=== PATIENT | female | born 1970 | race African-American/Black ===

== ENCOUNTER 2016-11-14 16:35 | Emergency (ER) | payer MEDICAID ==
[~2016-11-14 16:35] MED LIST: PALI9TAB PO; PANT40TA5 PO; [UNRECOGNIZED DRUG - OTHER] PO
[2016-11-14] MEDS ORDERED: TRAM-29 PO (17:42)
[2016-11-14] MEDS ORDERED: METH4TAB2 PO (17:42)
[2016-11-14] MEDS ORDERED: METH-37 PO (17:42)
--- NOTE | 2016-11-14 17:42 | PHYS DOC ---
Past Medical History Past Medical History: Anxiety, Depression, Schizophrenia Past Surgical History: Tubal ligation Alcohol Use: None Drug Use: None Adult General Chief Complaint Chief Complaint: Neck Pain HPI HPI Patient is a 46 year old female with a history of anxiety schizophrenia who presents today complaining of moderate neck pain due to chronic cervical stenosis. Patient denies any known injury. Denies any pain radiating to bilateral upper extremities. Denies any numbness or tingling to bilateral upper extremities. Review of Systems Review of Systems Constitutional: Denies fever or chills [] Eyes: Denies change in visual acuity, redness, or eye pain [] Musculoskeletal: Neck pain Integument: Denies rash or skin lesions [] Neurologic: Denies headache, focal weakness or sensory changes [] Endocrine: Denies polyuria or polydipsia [] Allergies Allergies Allergies Uncoded Allergies Type Severity Reaction Last Updated Verified itching pill Adverse Reaction Unknown 07/21/15 Physical Exam Physical Exam Constitutional: Well developed, well nourished, no acute distress, non-toxic appearance. [] HENT: Normocephalic, atraumatic, bilateral external ears normal, oropharynx moist, no oral exudates, nose normal. [] Eyes: PERRLA, EOMI, conjunctiva normal, no discharge. [] Neck: Normal range of motion, diffuse paraspinal muscle tenderness to posterior cervical spine, no midline cervical spine tenderness, supple, no stridor. [] Skin: Warm, dry, no erythema, no rash. [] Back: No tenderness, no CVA tenderness. [] Extremities: No tenderness, no cyanosis, no clubbing, ROM intact, no edema. [] Neurologic: Alert and oriented X 3, normal motor function, normal sensory function, no focal deficits noted. [] Psychologic: Affect normal, judgement normal, mood normal. [] EKG EKG [] Radiology/Procedures Radiology/Procedures [] Course & Med Decision Making Course & Med Decision Making Pertinent Labs and Imaging studies reviewed. (See chart for details) Patient is in the ED with chronic neck pain due to cervical stenosis. Discharged with Medrol dose pack, Robaxin and Ultram and instructed to continue following up with her primary care doctor or the provided her pain clinic for follow-up. Dragon Disclaimer Dragon Disclaimer This electronic medical record was generated, in whole or in part, using a voice recognition dictation system. Departure Departure Impression: Primary Impression: Chronic neck pain Disposition: 01 HOME, SELF-CARE Condition: STABLE Referrals: UNKNOWN PCP NAME (PCP) GISELLE ALATORRE MD Follow-up in one to 7 days for chronic neck pain Patient Instructions: Cervical Sprain Additional Instructions: You were seen for chronic neck pain due to cervical stenosis. Follow-up with the provided pain clinic. If you want a new Primary care doctor you can select one from the list provided. Scripts Methylprednisolone (MEDROL) 4 Mg Tab.ds.pk 1 PKG PO UD, #1 PKG Prov: REBECCA ALBRIGHT APRN 11/14/16 Methocarbamol (ROBAXIN) 500 Mg Tablet 1 TAB PO TID, #30 TAB Prov: REBECCA ALBRIGHT APRN 11/14/16 Tramadol Hcl (ULTRAM) 50 Mg Tablet 1 TAB PO Q6HRS, #30 TAB Prov: REBECCA ALBRIGHT APRN 11/14/16 REBECCA ALBRIGHT APRN Nov 14, 2016 17:42
[2016-11-14] MEDS ORDERED: HYDROcodone/APAP 5/325MG 1 TAB TABLET PO ONE (17:45)
[2016-11-14] MEDS ORDERED: CYCLOBENZAPRINE 10 MG TABLET. PO ONE (17:45)
[2016-11-14 17:46] VITALS: BP 117/77
== END 2016-11-14 17:50 | disposition home or self-care (01) ==
LOC: ER 16:35
DX: G89.29 Other chronic pain (principal); M54.2 Cervicalgia; F20.9 Schizophrenia, unspecified; F32.9 Major depressive disorder, single episode, unspecified; F41.9 Anxiety disorder, unspecified; M48.02 Spinal stenosis, cervical region; Z98.51 Tubal ligation status
CPT/HCPCS: 99283

== ENCOUNTER 2019-01-31 09:36 | Emergency (ER) | payer SELFPAY ==
[~2019-01-31] VITALS: Ht 160 cm; Wt 89.8 kg
[~2019-01-31 09:36] MED LIST changes: +METH-37 PO; +METH4TAB2 PO; -PANT40TA5 PO; +PANT40TA77 PO; +TRAM-48 PO
[2019-01-31] MEDS ORDERED: IV NORMAL SALINE 1000ML BAG 1,000 ML IV SCH (10:02)
[2019-01-31] MEDS ORDERED: PROCHLORPERAZINE 10 MG/2 ML VIAL. IV ONE (10:15)
[2019-01-31] MEDS ORDERED: FAMOTIDINE 20 MG/2 ML VIAL IVP ONE (10:15)
[2019-01-31] MEDS ORDERED: diphenhydrAMINE 50 MG/ML VIAL IVP ONE (10:15)
--- NOTE | 2019-01-31 10:15 | PHYS DOC ---
Past Medical History Past Medical History: Anxiety, Depression, Schizophrenia Additional Past Medical Histor: ulcers, fibroids Past Surgical History: Tubal ligation Smoking: Cigarettes Alcohol Use: None Drug Use: None Adult General Chief Complaint Chief Complaint: ABDOMINAL PAIN HPI HPI Patient is a 48-year-old female who presents to the emergency department for evaluation. She states that this morning, she began experiencing epigastric pain, and recurrent episodes of vomiting. She has not had any bloody emesis, does report some diarrhea, but her stool has been nonbloody. She has not had any chest pain shortness of breath. She is very anxious at this time. She states she has had similar episodes in the past numerous times, and states that "my ulcers are acting up", although she does not recall any particular diagnosis being given to her as a cause for her symptoms in the past. She flatly denies any substance abuse or marijuana use. She does not take alcohol. She has not had any fevers or chills, dizziness or lightheadedness. There are no alleviating or exacerbating factors to her symptoms. Review of her records reveal that she was hospitalized here in 2016 with a similar presentation. Review of Systems Review of Systems Constitutional: Denies fever or chills [] Eyes: Denies change in visual acuity, redness, or eye pain [] HENT: Denies nasal congestion or sore throat [] Respiratory: Denies cough or shortness of breath [] Cardiovascular: The patient denies any shortness of breath, chest pain, palpitations, or orthopnea [] GI:No additional information not addressed in HPI [] : Denies dysuria or hematuria [] Musculoskeletal: Denies back pain or joint pain [] Integument: Denies rash or skin lesions [] Neurologic: Denies headache, focal weakness or sensory changes [] Endocrine: Denies polyuria or polydipsia [] All other systems were reviewed and found to be within normal limits, except as documented in this note. Current Medications Current Medications Current Medications Medications (Trade) Dose Ordered Sig/Maribell Start Time Stop Time Status Last Admin Dose Admin Diphenhydramine HCl (Benadryl) 12.5 mg 1X ONCE 01/31/19 10:15 01/31/19 10:26 DC 01/31/19 10:25 12.5 MG Famotidine (Pepcid Vial) 20 mg 1X ONCE 01/31/19 10:15 01/31/19 10:26 DC 01/31/19 10:25 20 MG Info (CONTRAST GIVEN -- Rx MONITORING) 1 each PRN DAILY PRN 01/31/19 10:45 02/02/19 10:44 Iohexol (Omnipaque 300 Mg/ml) 75 ml 1X ONCE 01/31/19 10:45 01/31/19 10:46 DC 01/31/19 11:28 75 ML Lorazepam (Ativan Inj) 1 mg 1X ONCE 01/31/19 10:15 01/31/19 10:26 DC 01/31/19 10:25 1 MG Morphine Sulfate (Morphine Sulfate) 4 mg 1X ONCE 01/31/19 12:30 01/31/19 12:33 DC 01/31/19 12:38 4 MG Multi-Ingredient Mouthwash/Gargle (Gi Cocktail) 20 ml 1X ONCE 01/31/19 12:30 01/31/19 12:33 DC 01/31/19 12:38 20 ML Ondansetron HCl (Zofran) 4 mg 1X ONCE 01/31/19 12:30 01/31/19 12:33 DC 01/31/19 12:38 4 MG Prochlorperazine Edisylate (Compazine) 10 mg 1X ONCE 01/31/19 10:15 01/31/19 10:26 DC 01/31/19 10:25 10 MG Sodium Chloride 1,000 ml @ 1,000 mls/hr Q1H 01/31/19 10:02 01/31/19 11:01 DC 01/31/19 10:25 1,000 MLS/HR Allergies Allergies Allergies Coded Allergies Type Severity Reaction Last Updated Verified levofloxacin Allergy Mild 01/31/19 Yes Physical Exam Physical Exam PHYSICAL EXAM: CONSTITUTIONAL: Well developed, well nourished HEAD: normocephalic, atraumatic EENT: PERRL, EOMI. Conjunctivae normal color, sclerae non-icteric; moist mucous membranes. NECK: Supple, non-tender; no meningismus. LUNGS: Lungs CTA, breathing even and unlabored. Normal air movement. HEART: Regular rate and rhythm, no murmur CHEST: No deformity; non-tender ABDOMEN: The abdomen is soft, there is epigastric and left upper quadrant tenderness to palpation, without rebound or guarding, the right upper quadrant is relatively nontender, the remainder the abdomen is soft and non-tender, no masses or bruits. Bowel sounds are present. EXTREM: Normal ROM; no deformity, no calf tenderness. Normal pulses palpable in all extremities. There is no pedal edema. SKIN: No rash; no diaphoresis NEURO: Alert; normal speech and cognition; CN's grossly intact; strength grossly intact without focal deficit. BACK: No CVA TTP. PSYCHIATRIC: The patient exhibits a severely anxious affect. Current Patient Data Vital Signs Vital Signs Date Time Temp Pulse Resp B/P (MAP) Pulse Ox O2 Delivery O2 Flow Rate FiO2 01/31/19 12:38 24 01/31/19 12:37 42 129/80 (96) 98 Room Air 01/31/19 09:45 97.8 97.8 Lab Values Laboratory Tests Test 01/31/19 10:55 01/31/19 11:05 01/31/19 11:10 White Blood Count 11.8 x10^3/uL (4.0-11.0) H Red Blood Count 4.39 x10^6/uL (3.50-5.40) Hemoglobin 13.6 g/dL (12.0-15.5) Hematocrit 40.7 % (36.0-47.0) Mean Corpuscular Volume 93 fL (79-100) Mean Corpuscular Hemoglobin 31 pg (25-35) Mean Corpuscular Hemoglobin Concent 34 g/dL (31-37) Red Cell Distribution Width 13.7 % (11.5-14.5) Platelet Count 227 x10^3/uL (140-400) Neutrophils (%) (Auto) 78 % (31-73) H Lymphocytes (%) (Auto) 16 % (24-48) L Monocytes (%) (Auto) 5 % (0-9) Eosinophils (%) (Auto) 1 % (0-3) Basophils (%) (Auto) 0 % (0-3) Neutrophils # (Auto) 9.2 x10^3/uL (1.8-7.7) H Lymphocytes # (Auto) 1.9 x10^3/uL (1.0-4.8) Monocytes # (Auto) 0.5 x10^3/uL (0.0-1.1) Eosinophils # (Auto) 0.2 x10^3/uL (0.0-0.7) Basophils # (Auto) 0.0 x10^3/uL (0.0-0.2) Sodium Level 146 mmol/L (136-145) H Potassium Level 4.2 mmol/L (3.5-5.1) Chloride Level 113 mmol/L (98-107) H Carbon Dioxide Level 23 mmol/L (21-32) Anion Gap 10 (6-14) Blood Urea Nitrogen 12 mg/dL (7-20) Creatinine 0.6 mg/dL (0.6-1.0) Estimated GFR (Cockcroft-Gault) 129.1 BUN/Creatinine Ratio 20 (6-20) Glucose Level 115 mg/dL (70-99) H Calcium Level 10.5 mg/dL (8.5-10.1) H Total Bilirubin 0.4 mg/dL (0.2-1.0) Aspartate Amino Transferase (AST) 14 U/L (15-37) L Alanine Aminotransferase (ALT) 32 U/L (14-59) Alkaline Phosphatase 64 U/L (46-116) Troponin I Quantitative < 0.017 ng/mL (0.000-0.055) Total Protein 6.4 g/dL (6.4-8.2) Albumin 3.3 g/dL (3.4-5.0) L Albumin/Globulin Ratio 1.1 (1.0-1.7) Lipase 82 U/L (73-393) Thyroid Stimulating Hormone (TSH) 1.891 uIU/mL (0.358-3.74) Free Thyroxine 0.95 ng/dL (0.76-1.46) POC Urine HCG, Qualitative Hcg negative (Negative) Urine Collection Type Unknown Urine Color Yellow Urine Clarity Clear Urine pH 5.5 Urine Specific [place] 1.020 Urine Protein Negative mg/dL (NEG-TRACE) Urine Glucose (UA) Negative mg/dL (NEG) Urine Ketones (Stick) Negative mg/dL (NEG) Urine Blood Large (NEG) Urine Nitrite Negative (NEG) Urine Bilirubin Negative (NEG) Urine Urobilinogen Dipstick 0.2 mg/dL (0.2 mg/dL) Urine Leukocyte Esterase Negative (NEG) Urine RBC Rare /HPF (0-2) Urine WBC Occ /HPF (0-4) Urine Squamous Epithelial Cells Few /LPF Urine Bacteria Few /HPF (0-FEW) Urine Hyaline Casts Few /HPF Urine Mucus Mod /LPF Urine Opiates Screen Neg (NEG) Urine Methadone Screen Neg (NEG) Urine Barbiturates Neg (NEG) Urine Phencyclidine Screen Neg (NEG) Urine Amphetamine/Methamphetamine Neg (NEG) Urine Benzodiazepines Screen Neg (NEG) Urine Cocaine Screen Neg (NEG) Urine Cannabinoids Screen Neg (NEG) Urine Ethyl Alcohol Neg (NEG) Laboratory Tests 01/31/19 10:55 Laboratory Tests 01/31/19 10:55 EKG EKG []Sinus bradycardia at a rate of 46 beats for minute, normal axis, normal intervals, there are no acute ischemic ST/T changes. Radiology/Procedures Radiology/Procedures [PROCEDURE: CT ABD PELV W/ IV CONTRST ONLY PQRS Compliance statement: One or more of the following individualized dose reduction techniques were utilized for this examination: 1. Automated exposure control. 2. Adjustment of the mA and/or kV according to patient size. 3. Use of iterative reconstruction technique. Indication:Upper abdominal pain. Nausea and vomiting. TECHNIQUE: CT abdomen and pelvis with IV contrast with multiplanar reformats. COMPARISON: 07/21/2015. FINDINGS: Heart is normal in size. No pericardial or pleural effusion. 5 mm groundglass opacity in the left lung base. Liver, spleen, gallbladder, pancreas, adrenals and kidneys are within normal limits. No enlarged retroperitoneal or pelvic adenopathy. No free pelvic fluid or ascites. No bowel obstruction. Normal appendix. Mild circumferential wall thickening is seen of the ascending colon up to the level of mid transverse colon. No pericolonic inflammatory changes. Anteverted uterus. Urinary bladder demonstrates no radiopaque stone. No pneumoperitoneum. No suspicious bony lesion. IMPRESSION: 1. Solitary 5 mm small groundglass opacity in the left lung base, nonspecific and may be secondary to atelectasis. CT chest in 6 months recommended. 2. No nephrolithiasis or hydronephrosis. 3. Mild circumferential wall thickening of the proximal colon up to the level of transverse colon may be secondary to suboptimal distention or mild colitis.] Course & Med Decision Making Course & Med Decision Making Pertinent Labs and Imaging studies reviewed. (See chart for details) [] 2:00 PM: The patient's condition remained stable, she is feeling much better at this time, she has had no further vomiting, and appears to be resting comfortably. I discussed test results with the patient, the need for close PCP follow-up, and return precautions in detail. Dragon Disclaimer Dragon Disclaimer This electronic medical record was generated, in whole or in part, using a voice recognition dictation system. Departure Departure Impression: Primary Impression: Nausea & vomiting Additional Impression: Abdominal pain Disposition: HOME, SELF-CARE Condition: STABLE Referrals: NO PCP (PCP) Patient Instructions: Abdominal Pain, Gastritis, Adult, Nausea and Vomiting, Pulmonary Nodule Additional Instructions: There was a nodule that showed up on your left lung on the CAT scan, incidentally noted when a scan of her abdomen was obtained. It is recommended that you obtain a follow-up CT scan of your chest in 6 months, for further evaluation, and to exclude possibility of malignancy. Please contact your primary care provider to arrange further outpatient follow-up. He does not have a primary care provider, please use the provided resources, to help establish a primary care provider who can help arrange follow-up 40. Please call to schedule an appointment. Scripts Ondansetron Hcl (ZOFRAN) 4 Mg Tablet 1 TAB PO Q6HRS PRN for NAUSEA/VOMITING, #20 TAB Prov: ROSY GANT MD 01/31/19 Omeprazole (OMEPRAZOLE) 20 Mg Capsule.dr 20 MG PO DAILY for 30 Days, #30 CAP Prov: ROSY GANT MD 01/31/19 Problem Qualifiers ROSY GANT MD Jan 31, 2019 10:15
--- NOTE | 2019-01-31 10:32 | EKG ---
[facility] [address] [place] [address] Test Date: 2019-01-31 Test Time: 09:44:34 Pat Name: ROSE RODRIGUEZ Department: Room: Gender: F Information Systems Supervisor: : 1970 Requested By: ROSY GANT Order Number: [id number] Reading MD: Vignesh Soares MD Measurements Intervals [place] Rate: 46 P: 0 NC: 182 QRS: 31 QRSD: 82 T: 40 QT: 412 QTc: 365 Interpretive Statements SINUS BRADYCARDIA Electronically Signed On 02-01-2019 16:02:47 CDT by Vignesh Soares MD
[2019-01-31] MEDS ORDERED: IOHEXOL 300 MG/ML 100ML VIAL. IV ONE (10:45)
[2019-01-31] MEDS ORDERED: CONTRAST GIVEN. MC PRN (10:45)
[2019-01-31 11:03] LABS: BASO % 0 % (0-3); EOS # 0.2 x10^3/uL (0.0-0.7); EOS % 1 % (0-3); HEMATOCRIT 40.7 % (36.0-47.0); HEMOGLOBIN 13.6 g/dL (12.0-15.5); LYMPH # 1.9 x10^3/uL (1.0-4.8); LYMPH % 16 % (24-48); MEAN CORPUSCULAR HEMOGLOBIN 31 pg (25-35); MEAN CORPUSCULAR HGB CONC 34 g/dL (31-37); MEAN CORPUSCULAR VOLUME 93 fL (79-100); MONO # 0.5 x10^3/uL (0.0-1.1); MONO % 5 % (0-9); NEUT # 9.2 x10^3/uL (1.8-7.7); NEUT % 78 % (31-73); PLATELET COUNT 227 x10^3/uL (140-400); RED BLOOD COUNT 4.39 x10^6/uL (3.50-5.40); RED CELL DISTRIBUTION WIDTH 13.7 % (11.5-14.5); WHITE BLOOD COUNT 11.8 x10^3/uL (4.0-11.0)
[2019-01-31 11:15] LABS: CALCIUM 10.5 mg/dL (8.5-10.1); CREATININE 0.6 mg/dL (0.6-1.0); GFR 129.1; POTASSIUM 4.2 mmol/L (3.5-5.1)
[2019-01-31 11:21] LABS: ALBUMIN 3.3 g/dL (3.4-5.0); ALBUMIN/GLOBULIN RATIO 1.1 (1.0-1.7); TOTAL BILIRUBIN 0.4 mg/dL (0.2-1.0); TOTAL PROTEIN 6.4 g/dL (6.4-8.2)
[2019-01-31 11:27] LABS: BILIRUBIN,URINE NEGATIVE (NEG); CLARITY,URINE CLEAR; COLOR,URINE YELLOW; NITRITE,URINE NEGATIVE (NEG); PH,URINE 5.5; PROTEIN,URINE NEGATIVE (NEG-TRACE); UROBILINOGEN,URINE 0.2 mg/dL (0.2 mg/dL)
[2019-01-31 11:29] LABS: FREE T4 0.95 ng/dL (0.76-1.46); THYROID STIM HORMONE (TSH) 1.891 uIU/mL (0.358-3.74)
[2019-01-31 11:43] LABS: AMPHETAMINE/METHAMPHETAMINE NEG (NEG); BACTERIA,URINE FEW /HPF (0-FEW); BARBITURATES NEG (NEG); BENZODIAZEPINES NEG (NEG); CANNABINOIDS NEG (NEG); COCAINE NEG (NEG); METHADONE NEG (NEG); OPIATES NEG (NEG); PHENCYCLIDINE NEG (NEG); RBC,URINE RARE /HPF (0-2); SQUAMOUS EPITHELIAL CELL,UR FEW /LPF; WBC,URINE OCC /HPF (0-4)
[2019-01-31 11:44] LABS: HYALINE CASTS, URINE FEW /HPF
--- NOTE | 2019-01-31 11:51 | RAD ---
PQRS Compliance statement: One or more of the following individualized dose reduction techniques were utilized for this examination: 1. Automated exposure control. 2. Adjustment of the mA and/or kV according to patient size. 3. Use of iterative reconstruction technique. Indication:Upper abdominal pain. Nausea and vomiting. TECHNIQUE: CT abdomen and pelvis with IV contrast with multiplanar reformats. COMPARISON: 07/21/2015. FINDINGS: Heart is normal in size. No pericardial or pleural effusion. 5 mm groundglass opacity in the left lung base. Liver, spleen, gallbladder, pancreas, adrenals and kidneys are within normal limits. No enlarged retroperitoneal or pelvic adenopathy. No free pelvic fluid or ascites. No bowel obstruction. Normal appendix. Mild circumferential wall thickening is seen of the ascending colon up to the level of mid transverse colon. No pericolonic inflammatory changes. Anteverted uterus. Urinary bladder demonstrates no radiopaque stone. No pneumoperitoneum. No suspicious bony lesion. IMPRESSION: 1. Solitary 5 mm small groundglass opacity in the left lung base, nonspecific and may be secondary to atelectasis. CT chest in 6 months recommended. 2. No nephrolithiasis or hydronephrosis. 3. Mild circumferential wall thickening of the proximal colon up to the level of transverse colon may be secondary to suboptimal distention or mild colitis. Electronically signed by: Micah Paredes DO (01/31/2019 11:48 AM) [facility]
[2019-01-31] MEDS ORDERED: LIDO:MAALOX 1:1 20 ML SINGLE DOSE. SWSW ONE (12:30)
[2019-01-31] MEDS ORDERED: MORPHINE SULFATE 4 MG/ML VIAL. IV ONE (12:30)
[2019-01-31] MEDS ORDERED: ONDANSETRON PF 4 MG/2 ML VIAL. IV ONE (12:30)
[2019-01-31] MEDS ORDERED: OMEP20CA10 PO (14:04)
[2019-01-31] MEDS ORDERED: ONDA4TAB7 PO (14:04)
[2019-01-31 14:07] VITALS: BP 131/85
== END 2019-01-31 14:31 | disposition home or self-care (01) ==
LOC: ER 09:36
DX: R11.2 Nausea with vomiting, unspecified (principal); R19.7 Diarrhea, unspecified; R10.13 Epigastric pain; F41.9 Anxiety disorder, unspecified; R10.12 Left upper quadrant pain; F32.9 Major depressive disorder, single episode, unspecified; F17.210 Nicotine dependence, cigarettes, uncomplicated; Z98.51 Tubal ligation status; Z88.1 Allergy status to other antibiotic agents
CPT/HCPCS: 36415; 74177; 80053; 80307; 81001; 81025; 83690; 84439; 84443; 84484; 85025; 93005; 96361; 96374; 96375; 99285; J0780; J1200; J2060; J2270; J2405; J3490; J7030; Q9967

== ENCOUNTER 2020-02-03 10:03 | Emergency (ER) | payer MEDICAID ==
[~2020-02-03] VITALS: Ht 162.6 cm; Wt 92.7 kg
[~2020-02-03 10:03] MED LIST changes: +OMEP20CA16 PO; +ONDA4TAB7 PO
[2020-02-03 10:17] VITALS: BP 132/76
--- NOTE | 2020-02-03 10:53 | RAD ---
EXAM: AP pelvis, AP and lateral views right hip DATE: 02/03/2020 12:00 AM INDICATION: Right hip pain, no injury COMPARISON: No Prior FINDINGS/ IMPRESSION: No acute fracture or dislocation. Hip joint spaces are preserved. Subtle calcification at the posterior aspect of the right greater tuberosity may represent changes of calcific tendinitis or calcific periarthritis. Electronically signed by: José Miguel Jung MD (02/03/2020 10:50 AM) [id number]
--- NOTE | 2020-02-03 11:18 | PHYS DOC ---
Past Medical History Past Medical History: Anxiety, Depression, Schizophrenia Additional Past Medical Histor: ulcers, fibroids Past Surgical History: Tubal ligation Additional Past Surgical Histo: hamstring surgery in 03/2019 Smoking Status: Current Every Day Smoker Alcohol Use: None Drug Use: None General Adult EDM: Chief Complaint: BACK PAIN - NO INJURY HPI: HPI: 49-year-old female past medical history of schizophrenia, spinal stenosis, hypothyroidism and gastric ulcers, presents to the ed with c/o " my back is all messed up, my sciatica is aggravated and is going down to my legs and feet on the left side." States she had a hamstring surgery (Dr. Montez Ruiz) in March 2019 that was completed by a staph infection-states she is had chronic pain ever since then. No relief with Tylenol, ibuprofen or Biofreeze. States the symptoms have been chronic and she was going to call orthopedic surgery Dr. Fisher today for "a second opinion." Denies any new trauma, takes no AC. ROS: Denies associated fever, chills, cough, sore throat, nausea, vomiting, diarrhea, flank pain, dysuria, hematuria, abdominal pain, saddle anesthesia, urinary or bowel retention or incontinence, leg swelling, hemoptysis or difficulties walking. Allergies: Allergies: Allergies Coded Allergies Type Severity Reaction Last Updated Verified levofloxacin Allergy Mild 01/31/19 Yes Physical Exam: PE: Constitutional: Well developed, well nourished, no acute distress, non-toxic appearance. [] HENT: Normocephalic, atraumatic, bilateral external ears normal, nose normal. [] Eyes: EOMI, conjunctiva normal, no discharge. [] Neck: Normal range of motion, no tenderness, supple, no stridor. [] Cardiovascular:Heart rate regular rhythm, no murmur [] Lungs & Thorax: Bilateral breath sounds clear to auscultation [] Abdomen: Bowel sounds normal, soft, no tenderness, no masses, no pulsatile masses. [] Skin: Warm, dry, no erythema, no rash. [] Back: No reproducible tenderness-pain is localized at left SI joint and buttock - normal skin exam, no CVA tenderness. [] straight leg negative Extremities: No tenderness, no cyanosis, no clubbing, ROM intact, no edema. [] steady gait Neurologic: Alert and oriented X 3, normal motor function, normal sensory f unction, no focal deficits noted. [] Psychologic: Affect normal, judgement normal, mood normal. [] Current Patient Data: Vital Signs: Vital Signs Date Time Temp Pulse Resp B/P (MAP) Pulse Ox O2 Delivery O2 Flow Rate FiO2 02/03/20 10:17 98.0 58 18 132/76 (94) 99 Room Air 98.0 EKG: EKG: [] Radiology/Procedures: Radiology/Procedures: [] IMAGING REPORT Signed PATIENT: ROSE RODRIGUEZ ACCOUNT: [id number] : 1970 LOCATION: ER AGE: 49 SEX: F EXAM STATUS: REG ER ORD. PHYSICIAN: JOLIE FRANCOIS DO REASON: Right hip pain, no injury PROCEDURE: HIP RIGHT 2V WITH PELVIS EXAM: AP pelvis, AP and lateral views right hip DATE: 02/03/2020 12:00 AM INDICATION: Right hip pain, no injury COMPARISON: No Prior FINDINGS/ IMPRESSION: No acute fracture or dislocation. Hip joint spaces are preserved. Subtle calcification at the posterior aspect of the right greater tuberosity may represent changes of calcific tendinitis or calcific periarthritis. Electronically signed by: José Miguel Meraz MD (02/03/2020 10:50 AM) [id number] DICTATED and SIGNED BY: JOSÉ MIGUEL MERAZ MD DATE: 02/03/20 1050 Course & Med Decision Making: Course & Med Decision Making Pertinent Labs and Imaging studies reviewed. (See chart for details) Concern for chronic, atraumatic, back pain in the setting of sciatica, no neurologic deficits. Will recommend muscle relaxers at this time and encouraged orthopedic surgery follow-up. ED return precautions were given for neurologic deficits. Encouraged urgent outpatient follow-up with PMD and Ortho. Life- threatening processes were considered but are low suspicion at this time, given history and physical exam. Pt was educated on all prescription medications and adverse effects. All patient's questions were answered and pt was stable at time of discharge. Differential includes aortic dissection, cauda equina syndrome, transverse myelitis, spinal cord compression, epidural abscess or hematoma, osteomyelitis, disc herniation, surgical abdomen, stable or unstable fracture, renal colic/ urosepsis, musculoskeletal injury, traumatic injury, intraabdominal or pelvic bleeding, I spoken with the patient and her caregivers. I explained the patient's condition, diagnoses and treatment plan based on the information available to me at this time. I have answered the patient and her caregiver's questions and addressed any concerns. The patient and her caregivers have a good understanding of patient's diagnosis, condition and treatment plan as can be expected at this point. Vital signs have been stable. Patient's condition is stable and appropriate for discharge from the emergency department. Patient will pursue further outpatient evaluation with primary care physician or other designated or consulting physician as outlined in the discharge in structions. The patient and/or caregivers are agreeable to this plan of care and follow-up instructions have been explained in detail. The patient and/or caregivers have received these instructions in written form and have expressed an understanding of the discharge instructions. The patient and/or caregivers are aware that any significant change of condition or worsening of symptoms should prompt immediate return to this or the closest emergency department or call to 911. Denise Disclaimer: Denise Disclaimer: This electronic medical record was generated, in whole or in part, using a voice recognition dictation system. Departure Departure Impression: Primary Impression: Sciatica Additional Impression: Calcific tendinitis Disposition: HOME, SELF-CARE Condition: STABLE Referrals: NO PCP (PCP) Patient Instructions: Sciatica Additional Instructions: Mayito Fisher MD Primary Specialties Orthopaedic Sports Medicine Orthopaedic Surgery Address: [address] [place] [address] Scripts Cyclobenzaprine Hcl (CYCLOBENZAPRINE HCL) 10 Mg Tablet 1 TAB PO TID, #21 TAB Prov: JOLIE FRANCOIS DO 02/03/20 Justicifation of Admission Dx: Justifications for Admission: Justification of Admission Dx: N/A JOLIE FRANCOIS DO Feb 03, 2020 11:18
[2020-02-03] MEDS ORDERED: CYCL10TA2 PO (11:33)
[2020-02-03] MEDS ORDERED: KETOROLAC 60 MG/2 ML VIAL. IM ONE (11:45)
== END 2020-02-03 11:50 | disposition home or self-care (01) ==
LOC: ER 10:03
DX: M54.42 Lumbago with sciatica, left side (principal); M65.28 Calcific tendinitis, other site; G89.28 Other chronic postprocedural pain; F20.9 Schizophrenia, unspecified; F17.200 Nicotine dependence, unspecified, uncomplicated; Z98.51 Tubal ligation status; Z88.1 Allergy status to other antibiotic agents
CPT/HCPCS: 73502; 96372; 99283; J1885

== ENCOUNTER 2020-03-15 18:21 | Emergency (ER) | payer MEDICAID ==
[~2020-03-15] VITALS: Ht 162.6 cm; Wt 84.0 kg
[~2020-03-15 18:21] MED LIST changes: +CYCL10TA2 PO
[2020-03-15 18:50] VITALS: BP 111/70
[2020-03-15] MEDS ORDERED: CEPH-264 PO (19:41)
--- NOTE | 2020-03-15 19:41 | PHYS DOC ---
Past Medical History Past Medical History: Anxiety, Depression, Schizophrenia Additional Past Medical Histor: ulcers, fibroids (LEONIDAS WATTS APRN) Past Surgical History: Tubal ligation Additional Past Surgical Histo: hamstring surgery in 03/2019 (LEONIDAS WATTS APRN) Smoking Status: Current Every Day Smoker Alcohol Use: None Drug Use: None (LEONIDAS WATTS APRN) General Adult EDM: Chief Complaint: VAGINAL PROBLEM HPI: HPI: Patient is a 49 year old AA female who presents the emergency department with complaints of a swollen, tender, area to her right labia with a pustule present for the last 3 days. She denies any irregular vaginal discharge, dysuria, or pelvic pain. The patient denies any bleeding or drainage from the affected area. She states that the area is very painful to touch. She currently rates her pain 8 out of 10 on the pain scale, the pain increases if pressure is applied. (LEONIDAS WATTS APRN) Review of Systems: Review of Systems: Constitutional: Denies fever or chills. [] GI: Denies abdominal pain : Denies dysuria, see HPI. [] Integument: See HPI Lymphatic: Denies swollen glands. [] Psychiatric: Denies depression or anxiety. [] (LEONIDAS WATTS APRN) Heart Score: Risk Factors: Risk Factors: DM, Current or recent (<one month) smoker, HTN, HLP, family history of CAD, obesity. Risk Scores: Score 0 - 3: 2.5% MACE over next 6 weeks - Discharge Home Score 4 - 6: 20.3% MACE over next 6 weeks - Admit for Clinical Observation Score 7 - 10: 72.7% MACE over next 6 weeks - Early Invasive Strategies (LEONIDAS WATTS APRN) Allergies: Allergies: Allergies Coded Allergies Type Severity Reaction Last Updated Verified levofloxacin Allergy Mild 01/31/19 Yes (LEONIDAS WATTS APRN) Physical Exam: PE: Constitutional: Well developed, well nourished, no acute distress, non-toxic appearance. [] HENT: Normocephalic, atraumatic, bilateral external ears normal, nose normal. [] Eyes: PERRLA, EOMI, conjunctiva normal, no discharge. [] Neck: Normal range of motion, no stridor. [] Cardiovascular:Heart rate regular rhythm Lungs & Thorax: Respirations even and unlabored, no retractions, no respiratory distress Abdomen: soft, no tenderness Skin: Warm, dry; 1 cm diameter erythemic, swollen area noted to right labia majora with centralized pustule that is not draining any blood or pus at this time. Dung RN was at bedside for x ray nurse fore evaluation. Extremities: No cyanosis, ROM intact, no edema. [] Neurologic: Alert and oriented X 3, no focal deficits noted. [] Psychologic: Affect normal, judgement normal, mood normal. [] (LEONIDAS WATTS APRN) Current Patient Data: Vital Signs: Vital Signs Date Time Temp Pulse Resp B/P (MAP) Pulse Ox O2 Delivery O2 Flow Rate FiO2 03/15/20 18:50 98.8 79 16 111/70 (84) 96 Room Air 98.8 (LEONIDAS WATTS APRN) EKG: EKG: [] (LEONIDAS WATTS APRN) Radiology/Procedures: Radiology/Procedures: Indication: abscess Procedure: The patient was positioned appropriately. The affected area of the right labia majora was cleansed with alcohol. An 18-gauge needle was inserted into the the apex of the lesion and moderate amount of pus and blood material was expressed. There was minimal blood loss, the patient tolerated the procedure well. Complications: none.[] (LEONIDAS WATTS APRN) Course & Med Decision Making: Course & Med Decision Making Pertinent Labs and Imaging studies reviewed. (See chart for details) [] (LEONIDAS WATTS APRN) Course & Med Decision Making I have reviewed the PA/MELANGEUR OPERATOR's note and Plan of Care. I was available for consultation as needed during the patient's visit in the emergency department. I agree with the clinical impression, plans and disposition. (CHRISTIANO MYERS MD) Denise Disclaimer: Denise Disclaimer: This electronic medical record was generated, in whole or in part, using a voice recognition dictation system. (LEONIDAS WATTS APRN) Departure Departure Impression: Primary Impression: Abscess of right genital labia Disposition: HOME, SELF-CARE Condition: STABLE Referrals: NO PCP (PCP) Patient Instructions: Vulvar Abscess, [id number] Additional Instructions: Fill the prescription and use it as directed. Recommend that you stops shaving this area as it contributes to the development of an abscess. Follow-up with y our [facility] this week, return to the ER if symptoms worsen or fever develops. Scripts Cephalexin (KEFLEX) 500 Mg Capsule 500 MG PO QID for 7 Days, #28 CAP 0 Refills Prov: LEONIDAS WATTS APRN 03/15/20 LEONIDAS WATTS APRN Mar 15, 2020 19:41 CHRISTIANO MYERS MD Mar 15, 2020 19:46
== END 2020-03-15 19:43 | disposition home or self-care (01) ==
LOC: ER 18:21
DX: N76.4 Abscess of vulva (principal); F20.9 Schizophrenia, unspecified; F17.200 Nicotine dependence, unspecified, uncomplicated; Z98.51 Tubal ligation status; Z88.1 Allergy status to other antibiotic agents
CPT/HCPCS: 56405; 99284

== ENCOUNTER 2020-04-19 08:39 | Emergency (ER) | payer MEDICAID ==
[~2020-04-19] VITALS: Ht 162.6 cm; Wt 84.0 kg
[~2020-04-19 08:39] MED LIST changes: +CEPH-264 PO
[2020-04-19] MEDS ORDERED: MORPHINE SULFATE 10 MG/ML VIAL. IV ONE ×2 (09:00→12:30)
[2020-04-19] MEDS ORDERED: LIDO:MAALOX 1:1 20 ML SINGLE DOSE. SWSW ONE (09:00)
[2020-04-19] MEDS ORDERED: diazePAM 5 MG TABLET PO ONE (09:00)
[2020-04-19 10:00] VITALS: BP 108/62
[2020-04-19] MEDS ORDERED: ONDANSETRON PF 4 MG/2 ML VIAL. IVP ONE (10:00)
[2020-04-19 10:13] LABS: CALCIUM 10.4 mg/dL (8.5-10.1); CREATININE 0.7 mg/dL (0.6-1.0); GFR 107.6; POTASSIUM 3.9 mmol/L (3.5-5.1)
[2020-04-19 10:18] LABS: ALBUMIN 3.7 g/dL (3.4-5.0); ALBUMIN/GLOBULIN RATIO 0.9 (1.0-1.7); TOTAL BILIRUBIN 0.6 mg/dL (0.2-1.0); TOTAL PROTEIN 7.7 g/dL (6.4-8.2)
[2020-04-19 10:34] LABS: BASO % 0 % (0-3); EOS # 0.1 x10^3/uL (0.0-0.7); EOS % 1 % (0-3); HEMATOCRIT 42.2 % (36.0-47.0); HEMOGLOBIN 14.2 g/dL (12.0-15.5); LYMPH # 1.8 x10^3/uL (1.0-4.8); LYMPH % 24 % (24-48); MEAN CORPUSCULAR HEMOGLOBIN 31 pg (25-35); MEAN CORPUSCULAR HGB CONC 34 g/dL (31-37); MEAN CORPUSCULAR VOLUME 93 fL (79-100); MONO # 0.4 x10^3/uL (0.0-1.1); MONO % 6 % (0-9); NEUT # 5.2 x10^3/uL (1.8-7.7); NEUT % 69 % (31-73); PLATELET COUNT 279 x10^3/uL (140-400); RED BLOOD COUNT 4.56 x10^6/uL (3.50-5.40); RED CELL DISTRIBUTION WIDTH 13.2 % (11.5-14.5); WHITE BLOOD COUNT 7.6 x10^3/uL (4.0-11.0)
[2020-04-19 11:27] LABS: BILIRUBIN,URINE SMALL (NEG); CLARITY,URINE CLEAR; COLOR,URINE AMBER; NITRITE,URINE NEGATIVE (NEG); PROTEIN,URINE >=300 mg/dL (NEG-TRACE); UROBILINOGEN,URINE 0.2 mg/dL (0.2 mg/dL)
[2020-04-19 12:01] LABS: BACTERIA,URINE FEW /HPF (0-FEW); WBC,URINE 0 /HPF (0-4)
[2020-04-19 12:02] LABS: HYALINE CASTS, URINE OCCASIONAL /HPF
--- NOTE | 2020-04-19 12:29 | ED.ADGEN ---
Past Medical History Past Medical History: Anxiety, Depression, Schizophrenia Additional Past Medical Histor: ulcers, fibroids Past Surgical History: Tubal ligation Additional Past Surgical Histo: hamstring surgery in 03/2019 Smoking Status: Current Every Day Smoker Alcohol Use: None Drug Use: None General Adult EDM: Chief Complaint: BACK PAIN OR INJURY HPI: HPI: Patient is a 49-year-old female who presents to the emergency room complaining of thoracic back pain and spasms. She states that she has been dealing with this pain for quite some time and then her back locked up on her today and she was not able to get up and move around so she called for an ambulance. She has had these episodes previously. She has not been able to follow-up with a primary care physician but has been in physical therapy. She takes muscle relaxants without any relief. She denies any fevers, chills, sweats, abdominal pain, numbness, weakness, urinary difficulty. Review of Systems: Review of Systems: Constitutional: Denies fever or chills. [] Eyes: Denies change in visual acuity. [] HENT: Denies nasal congestion or sore throat. [] Respiratory: Denies cough or shortness of breath. [] Cardiovascular: Denies chest pain or edema. [] GI: Denies abdominal pain, nausea, vomiting, bloody stools or diarrhea. [] : Denies dysuria. [] Musculoskeletal: Denies back pain or joint pain. [] Integument: Denies rash. [] Neurologic: Denies headache, focal weakness or sensory changes. [] Endocrine: Denies polyuria or polydipsia. [] Lymphatic: Denies swollen glands. [] Psychiatric: Denies depression or anxiety. [] Current Medications: Current Medications Medications (Trade) Dose Ordered Sig/Maribell Start Time Stop Time Status Last Admin Dose Admin Diazepam (Valium) 5 mg 1X ONCE 04/19/20 09:00 04/19/20 09:01 DC 04/19/20 09:27 5 MG Morphine Sulfate (Morphine Sulfate) 5 mg 1X ONCE 04/19/20 12:30 04/19/20 12:33 DC 04/19/20 12:48 5 MG Multi-Ingredient Mouthwash/Gargle (Gi Cocktail) 20 ml 1X ONCE 04/19/20 09:00 04/19/20 09:01 DC 04/19/20 09:25 20 ML Ondansetron HCl (Zofran) 4 mg 1X ONCE 04/19/20 10:00 04/19/20 10:01 DC 04/19/20 11:07 4 MG Allergies: Allergies: Allergies Coded Allergies Type Severity Reaction Last Updated Verified levofloxacin Allergy Intermediate 04/19/20 Yes Physical Exam: PE: General: Awake, alert, NAD. Well Nourished, well hydrated. Cooperative HEENT: Atraumatic, EOMI, PERRL, airway patent, moist oral mucosa Neck: Supple, trachea midline Respiratory: CTA bilaterally, normal effort, no wheezing/crackles CV: RRR, no murmur, cap refill <2 GI: Soft, nondistended, nontender, no masses MSK: No obvious deformities, spasms along the mid back bilaterally, no mid line tenderness Skin: Warm, dry, intact Neuro: A&O x3, speech NL, sensory and motor grossly intact, no focal deficits Psych: Normal affect, normal mood, not suicidal or homicidal Current Patient Data: Labs: Laboratory Tests Test 04/19/20 09:00 04/19/20 10:20 04/19/20 11:10 Sodium Level 142 mmol/L (136-145) Potassium Level 3.9 mmol/L (3.5-5.1) Chloride Level 109 mmol/L (98-107) H Carbon Dioxide Level 25 mmol/L (21-32) Anion Gap 8 (6-14) Blood Urea Nitrogen 10 mg/dL (7-20) Creatinine 0.7 mg/dL (0.6-1.0) Estimated GFR (Cockcroft-Gault) 107.6 BUN/Creatinine Ratio 14 (6-20) Glucose Level 118 mg/dL (70-99) H Calcium Level 10.4 mg/dL (8.5-10.1) H Total Bilirubin 0.6 mg/dL (0.2-1.0) Aspartate Amino Transferase (AST) 16 U/L (15-37) Alanine Aminotransferase (ALT) 23 U/L (14-59) Alkaline Phosphatase 89 U/L (46-116) Total Protein 7.7 g/dL (6.4-8.2) Albumin 3.7 g/dL (3.4-5.0) Albumin/Globulin Ratio 0.9 (1.0-1.7) L White Blood Count 7.6 x10^3/uL (4.0-11.0) Red Blood Count 4.56 x10^6/uL (3.50-5.40) Hemoglobin 14.2 g/dL (12.0-15.5) Hematocrit 42.2 % (36.0-47.0) Mean Corpuscular Volume 93 fL (79-100) Mean Corpuscular Hemoglobin 31 pg (25-35) Mean Corpuscular Hemoglobin Concent 34 g/dL (31-37) Red Cell Distribution Width 13.2 % (11.5-14.5) Platelet Count 279 x10^3/uL (140-400) Neutrophils (%) (Auto) 69 % (31-73) Lymphocytes (%) (Auto) 24 % (24-48) Monocytes (%) (Auto) 6 % (0-9) Eosinophils (%) (Auto) 1 % (0-3) Basophils (%) (Auto) 0 % (0-3) Neutrophils # (Auto) 5.2 x10^3/uL (1.8-7.7) Lymphocytes # (Auto) 1.8 x10^3/uL (1.0-4.8) Monocytes # (Auto) 0.4 x10^3/uL (0.0-1.1) Eosinophils # (Auto) 0.1 x10^3/uL (0.0-0.7) Basophils # (Auto) 0.0 x10^3/uL (0.0-0.2) Urine Collection Type Void Urine Color Jen Urine Clarity Clear Urine pH 6.0 (<5.0-8.0) Urine Specific Surprise >=1.030 (1.000-1.030) Urine Protein >=300 mg/dL (NEG-TRACE) Urine Glucose (UA) Negative mg/dL (NEG) Urine Ketones (Stick) Trace mg/dL (NEG) Urine Blood Large (NEG) Urine Nitrite Negative (NEG) Urine Bilirubin Small (NEG) Urine Urobilinogen Dipstick 0.2 mg/dL (0.2 mg/dL) Urine Leukocyte Esterase Negative (NEG) Urine RBC 6-10 /HPF (0-2) Urine WBC 0 /HPF (0-4) Urine Squamous Epithelial Cells Many /LPF Urine Bacteria Few /HPF (0-FEW) Urine Hyaline Casts Occasional /HPF Urine Mucus Marked /LPF Laboratory Tests 04/19/20 10:20 Laboratory Tests 04/19/20 09:00 Vital Signs: Vital Signs Date Time Temp Pulse Resp B/P (MAP) Pulse Ox O2 Delivery O2 Flow Rate FiO2 04/19/20 08:40 98.0 62 24 105/61 (76) 99 Room Air 98.0 EKG: EKG: [] Heart Score: Risk Factors: Risk Factors: DM, Current or recent (<one month) smoker, HTN, HLP, family history of CAD, obesity. Risk Scores: Score 0 - 3: 2.5% MACE over next 6 weeks - Discharge Home Score 4 - 6: 20.3% MACE over next 6 weeks - Admit for Clinical Observation Score 7 - 10: 72.7% MACE over next 6 weeks - Early Invasive Strategies Radiology/Procedures: Radiology/Procedures: [] Course & Med Decision Making: Course & Med Decision Making Pertinent Labs and Imaging studies reviewed. (See chart for details) Patient is a 49-year-old female who presents to the Emergency room with exacerba tion non-traumatic back pain. Patient denies bowel incontinence, urinary retention, fever, numbness, weakness. On exam, patient does not have a neurologic deficits, saddle anesthesia, gait difficulty, signs of trauma, or wounds near area of pain. Patient does not have a history of cancer or prolonged steroid use. At this time, patient does not have any signs, symptoms, or risk factors of emergent causes of back pain making cauda equina, spinal abscess, transverse myelitis, fractures, and other causes of emergent back pain highly unlikely. At this time, patient does not need any further work up for their back pain and will be treated symptomatically. Patient's test results and vitals while in the ED were fully reviewed and discussed with the patient. Patient is stable and at this time does not need admission to the hospital. We have discussed strict return precautions and the importance of following up with their Primary Care Physician. Patient stated understanding and was given an opp ortunity to ask any questions. Patient is in agreement with plan. Cookieon Disclaimer: Denise Disclaimer: This electronic medical record was generated, in whole or in part, using a voice recognition dictation system. Departure Departure Impression: Primary Impression: Thoracic sprain Disposition: 01 DC HOME SELF CARE/HOMELESS Condition: STABLE Referrals: NO PCP (PCP) Patient Instructions: Thoracic Strain CHRIS LEUNG MD Apr 19, 2020 12:29
[2020-04-20] MEDS ORDERED: ORPH100T PO (13:40)
[2020-04-20] MEDS ORDERED: ONDA4TAB12 PO (13:40)
[2020-04-20] MEDS ORDERED: PRED20TA PO (13:40)
[2020-04-20] MEDS ORDERED: HYDR-3164 PO (13:40)
== END 2020-04-19 12:54 | disposition home or self-care (01) ==
LOC: ER 08:39
DX: M54.6 Pain in thoracic spine (principal); R25.2 Cramp and spasm; F41.9 Anxiety disorder, unspecified; F32.9 Major depressive disorder, single episode, unspecified; F20.9 Schizophrenia, unspecified; F17.200 Nicotine dependence, unspecified, uncomplicated; Z98.51 Tubal ligation status; Z98.890 Other specified postprocedural states
CPT/HCPCS: 36415; 80053; 81001; 85025; 96374; 96375; 96376; 99284; J2270; J2405

== ENCOUNTER 2020-04-20 12:29 | Emergency (ER) | payer MEDICAID ==
[~2020-04-20] VITALS: Ht 162.6 cm; Wt 84.0 kg
[2020-04-20 12:50] VITALS: BP 135/97
--- NOTE | 2020-04-20 13:36 | PHYS DOC ---
Past Medical History Past Medical History: Anxiety, Depression, Schizophrenia Additional Past Medical Histor: ulcers, fibroids Past Surgical History: Tubal ligation Additional Past Surgical Histo: hamstring surgery in 03/2019 Smoking Status: Current Every Day Smoker Alcohol Use: None Drug Use: None General Adult EDM: Chief Complaint: MULTIPLE COMPLAINTS HPI: HPI: Patient is a 49 year old female who presents with nausea and vomiting. Pt came to the ED yesterday for back pain and was given morphine and valium. Pt is co mplaining of "acid in her stomach." Pt also vomited all night. Pt has not eaten since monday. Pt also complains of severe back pain. The pain is chronic but is worse right now. She states that diagnoses her with spinal stenosis in 2016. Pt also complains of losing ability to control bladder when coughing. Review of Systems: Review of Systems: Constitutional: Denies fever or chills Eyes: Denies redness or eye pain HENT: Denies nasal congestion or sore throat Respiratory: Denies cough or shortness of breath Cardiovascular: Denies chest pain or palpitations GI: Denies blood in vomit or changes in bowel function : Denies dysuria or hematuria Musculoskeletal: Denies joint pain or athritis Integument: Denies rash or skin lesions Neurologic: Denies headache, focal weakness or sensory changes Complete systems were reviewed and found to be within normal limits, except as documented in this note. Allergies: Allergies: Allergies Coded Allergies Type Severity Reaction Last Updated Verified levofloxacin Allergy Intermediate 04/19/20 Yes Physical Exam: PE: Constitutional: Well developed, well nourished, non-toxic appearance HENT: Normocephalic, atraumatic Eyes: Conjunctiva normal, no discharge Neck: Normal range of motion, no tenderness, supple Lungs & Thorax: No respiratory distress, equal chest rise and fall Abdomen: Soft, epigastric tenderness Skin: Warm, dry, no erythema, no rash Back: tenderness to palpation from C3-L3, limited ROM due to pain Extremities: tenderness in right proximal lower extremity , ROM intact, no edema Neurologic: Alert and oriented X 3, normal motor function, normal sensory function, no focal deficits noted Psychologic: Affect normal, judgment normal Current Patient Data: Vital Signs: Vital Signs Date Time Temp Pulse Resp B/P (MAP) Pulse Ox O2 Delivery O2 Flow Rate FiO2 04/20/20 12:50 98.4 84 18 135/97 (110) 100 98.4 EKG: EKG: [] Radiology/Procedures: Radiology/Procedures: [] Course & Med Decision Making: Course & Med Decision Making Pertinent Labs and Imaging studies reviewed. (See chart for details) Denise Disclaimer: Denise Disclaimer: This electronic medical record was generated, in whole or in part, using a voice recognition dictation system. Departure Departure Impression: Primary Impression: Chronic thoracic back pain Qualified Codes: M54.6 - Pain in thoracic spine; G89.29 - Other chronic pain Additional Impression: Nausea & vomiting Qualified Codes: R11.2 - Nausea with vomiting, unspecified Disposition: 01 DC HOME SELF CARE/HOMELESS Condition: STABLE Referrals: NO PCP (PCP) GISELLE ALATORRE MD Patient Instructions: Back Pain, Adult, [id number], Chronic Back Pain Scripts Ondansetron (ONDANSETRON ODT) 4 Mg Tab.rapdis 1 TAB PO PRN Q6-8HRS PRN for NAUSEA, #16 TAB Prov: JONATHAN MCLEAN DO 04/20/20 Prednisone (PREDNISONE) 20 Mg Tablet 2 TAB PO DAILY, #10 TAB Prov: JONATHAN MCLEAN DO 04/20/20 Hydrocodone/Apap 5-325 (NORCO 5-325 TABLET) 1 Each Tablet 0.5-1 TAB PO PRN Q6HRS PRN for PAIN, #10 TAB 0 Refills Prov: JONATHAN MCLEAN DO 04/20/20 Orphenadrine Citrate (ORPHENADRINE CITRATE) 100 Mg Tablet.er 100 MG PO BID PRN for MUSCLE PAIN, #14 TAB Prov: JONATHAN MCLEAN DO 04/20/20 JONATHAN MCLEAN DO Apr 20, 2020 13:36
[2020-04-20] MEDS ORDERED: PRED20TA PO (13:40)
[2020-04-20] MEDS ORDERED: ORPH100T PO (13:40)
[2020-04-20] MEDS ORDERED: HYDR-3164 PO (13:40)
[2020-04-20] MEDS ORDERED: ONDA4TAB12 PO (13:40)
[2020-04-20] MEDS ORDERED: ORPHENADRINE CITRATE 60 MG/2 ML VIAL. IM ONE (13:45)
[2020-04-20] MEDS ORDERED: DEXAMETHASONE 4 MG TABLET PO ONE (13:45)
[2020-04-20] MEDS ORDERED: HYDROcodone/APAP 5/325MG 1 TAB TABLET PO ONE (13:45)
[2020-04-20] MEDS ORDERED: ONDANSETRON ODT 4 MG TAB.RAPDIS. PO ONE (13:45)
[2020-04-20] MEDS ORDERED: KETOROLAC 15 MG/ML VIAL. IVP ONE (13:45)
[2020-04-20] MEDS ORDERED: KETOROLAC 30 MG/ML VIAL. IM ONE (14:00)
== END 2020-04-20 14:35 | disposition home or self-care (01) ==
LOC: ER 12:29
DX: G89.29 Other chronic pain (principal); M54.6 Pain in thoracic spine; R11.2 Nausea with vomiting, unspecified; R10.13 Epigastric pain; F20.9 Schizophrenia, unspecified; F41.9 Anxiety disorder, unspecified; F17.200 Nicotine dependence, unspecified, uncomplicated; Z88.1 Allergy status to other antibiotic agents
CPT/HCPCS: 96372; 99284; J1885; J2360

== ENCOUNTER 2020-05-04 08:03 | Emergency (ER) | payer MEDICAID ==
[~2020-05-04] VITALS: Ht 162.6 cm; Wt 87.0 kg
[~2020-05-04 08:03] MED LIST changes: +HYDR-3164 PO; +ONDA4TAB12 PO; +ORPH100T PO; +PRED20TA PO
[2020-05-04] MEDS ORDERED: MORPHINE SULFATE 4 MG/ML VIAL. IM ONE (09:45)
[2020-05-04] MEDS ORDERED: KETOROLAC 60 MG/2 ML VIAL. IM ONE (09:45)
[2020-05-04] MEDS ORDERED: ONDANSETRON ODT 4 MG TAB.RAPDIS. PO ONE (09:45)
[2020-05-04] MEDS ORDERED: LIDO:MAALOX 1:1 20 ML SINGLE DOSE. ONE (09:47)
[2020-05-04] MEDS ORDERED: LIDO:MAALOX 1:1 20 ML SINGLE DOSE. SWSW ONE (10:00)
[2020-05-04] MEDS ORDERED: FAMOTIDINE 20 MG TABLET. PO ONE (10:00)
[2020-05-04] MEDS ORDERED: IV NORMAL SALINE 1000ML BAG 1,000 ML IV ONE (10:30)
[2020-05-04] MEDS ORDERED: METOCLOPRAMIDE HCL 10 MG/2 ML VIAL. IVP ONE (10:30)
[2020-05-04 11:18] LABS: BASO # 0.1 x10^3/uL (0.0-0.2); BASO % 1 % (0-3); EOS % 1 % (0-3); HEMATOCRIT 44.2 % (36.0-47.0); HEMOGLOBIN 15.3 g/dL (12.0-15.5); LYMPH # 2.1 x10^3/uL (1.0-4.8); LYMPH % 24 % (24-48); MEAN CORPUSCULAR HEMOGLOBIN 32 pg (25-35); MEAN CORPUSCULAR HGB CONC 35 g/dL (31-37); MEAN CORPUSCULAR VOLUME 92 fL (79-100); MONO # 0.6 x10^3/uL (0.0-1.1); MONO % 7 % (0-9); NEUT # 6.2 x10^3/uL (1.8-7.7); NEUT % 69 % (31-73); PLATELET COUNT 261 x10^3/uL (140-400); RED BLOOD COUNT 4.81 x10^6/uL (3.50-5.40); RED CELL DISTRIBUTION WIDTH 13.4 % (11.5-14.5)
[2020-05-04 11:23] LABS: CALCIUM 10.6 mg/dL (8.5-10.1); CREATININE 0.9 mg/dL (0.6-1.0); GFR 80.5; POTASSIUM 3.5 mmol/L (3.5-5.1)
[2020-05-04 11:30] LABS: ALBUMIN 3.8 g/dL (3.4-5.0); ALBUMIN/GLOBULIN RATIO 0.9 (1.0-1.7); TOTAL BILIRUBIN 0.6 mg/dL (0.2-1.0); TOTAL PROTEIN 7.9 g/dL (6.4-8.2)
[2020-05-04] MEDS ORDERED: CONTRAST GIVEN. MC PRN (12:00)
[2020-05-04] MEDS ORDERED: IOHEXOL 300 MG/ML 100ML VIAL. IV ONE (12:00)
[2020-05-04 12:28] LABS: BILIRUBIN,URINE SMALL (NEG); CLARITY,URINE CLOUDY; COLOR,URINE ORANGE; NITRITE,URINE NEGATIVE (NEG); PH,URINE 5.5 (<5.0-8.0); PROTEIN,URINE >=300 mg/dL (NEG-TRACE)
--- NOTE | 2020-05-04 12:36 | RAD ---
Examination: CT of the abdomen pelvis with IV contrast HISTORY: History of abdominal pain, nausea, vomiting COMPARISON: 01/31/2019 TECHNIQUE: Axial CT images of the abdomen pelvis were performed with IV contrast. Coronal and sagittal reformats are performed Exposure: One or more of the following individualized dose reduction techniques were utilized for this examination: 1. Automated exposure control 2. Adjustment of the mA and/or kV according to patient size 3. Use of iterative reconstruction technique FINDINGS: Minimal bibasilar lung atelectasis. No evidence of free air identified in the abdomen. The visualized liver demonstrates small focal fat in the left lobe of the liver. The spleen, adrenals grossly appears unremarkable. The gallbladder is mildly distended. The stomach is mildly distended. The visualized pancreas grossly appears unremarkable. The small bowel is nondilated. The appendix is normal. Feces and gas noted in the colon Urinary bladder is mildly distended. The bilateral kidneys enhance symmetrically. No evidence of lytic bony destructive lesion. IMPRESSION: 1. No acute intraabdominal findings. Electronically signed by: Gutierrez Groves MD (05/04/2020 12:33 PM) [id number]
[2020-05-04 12:39] LABS: HYALINE CASTS, URINE MANY /HPF
[2020-05-04 12:41] LABS: AMORPHOUS SEDIMENT,UR PRESENT /HPF; BACTERIA,URINE FEW /HPF (0-FEW); TRICHOMONAS,URINE PRESENT
[2020-05-04 12:42] LABS: AMPHETAMINE/METHAMPHETAMINE NEG (NEG); BARBITURATES NEG (NEG); BENZODIAZEPINES POS (NEG); CANNABINOIDS NEG (NEG); COCAINE POS (NEG); METHADONE NEG (NEG); OPIATES POS (NEG); PHENCYCLIDINE NEG (NEG)
[2020-05-04] MEDS ORDERED: OMEP20TA63 PO (13:08)
[2020-05-04] MEDS ORDERED: ONDA4TAB7 PO (13:08)
[2020-05-04] MEDS ORDERED: SUCR1TAB35 PO (13:08)
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
[2020-05-04 13:51] VITALS: BP 106/68
--- NOTE | 2020-05-05 16:45 | NUR ---
IP: Informed pt of negative COVID test. Pt verbalized understanding.
== END 2020-05-04 14:05 | disposition home or self-care (01) ==
LOC: ER 08:03
DX: K29.70 Gastritis, unspecified, without bleeding (principal); M54.5 Low back pain; Z20.818 Contact with and (suspected) exposure to other bacterial communicable diseases; R10.13 Epigastric pain; R11.2 Nausea with vomiting, unspecified; G89.29 Other chronic pain; F41.9 Anxiety disorder, unspecified; F32.9 Major depressive disorder, single episode, unspecified; F20.9 Schizophrenia, unspecified; F17.200 Nicotine dependence, unspecified, uncomplicated; Z98.51 Tubal ligation status; Z98.890 Other specified postprocedural states; Z88.1 Allergy status to other antibiotic agents
CPT/HCPCS: 36415; 74177; 80053; 80307; 81001; 83690; 85025; 87086; 96361; 96372; 96374; 99285; C9803; J1885; J2270; J2765; J7030; Q9967; U0003

== ENCOUNTER → 2020-07-06 | Outpatient (CLI) | payer MEDICAID ==
[~2020-07-06] MED LIST changes: +CARI1.5C PO; +DIAZ5TAB4 PO; +DOXE10CA PO; +FAMO-63 PO; +IOHEXOL 180 MG/ML 10 ML VIAL. ONE; +OMEP20TA63 PO; +SUCR1TAB35 PO; +methylPREDNISolone ACETATE 40 MG/ML VIAL. ONE; +methylPREDNISolone ACETATE 80 MG/ML VIAL. ONE
--- NOTE | 2020-07-06 14:17 | PDOC1 ---
INITIAL PAIN CONSULT DATE OF SERVICE: DOS: DATE: 07/06/20 TIME: 14:09 CHIEF COMPLAINT: Chief Complaint: Low back and right lower extremity pain HISTORY OF PRESENT ILLNESS: 49-year-old female presents with history of pain in the low back and right lower extremity for about 1-1/2 years now. Patient reports not the result of any specific injury or accident but had pain increase in the low back rating the right lower extremities in the posterior gluteus lateral thigh anterior thigh medial side posterior calf into the right foot involving all the toes as well patient reports worse with walking standing changing from seated to standing position worse at night wakes her up for anywhere from 3-10 times a night every night patient reports it does affect her bowel and bladder control causing some increased urgency but no loss of continence patient reports its significantly affecting her ability to walk and she does use a cane and she is holding it in her right hand. Patient reports she has had physical therapy in the past which is not helpful also she does have a friend who is a masseuse and is beginning her so massages at home. Patient did have physical therapy in March 2020 which was not helpful on the long-term as well. Patient not taking any current medications has taken some [id number] Tylenol in the past which does not help the pain significantly. Patient rates her disability rating from 0-10 10 being the worst, as a 9 with family home responsibilities 10 with recreation social activity sexual behavior occupation social activity 6 with self-care and one with life support activities. RI scan lumbar spine showing at the ill for 5 level mild annular disc bulging resulting in minimal flattening of the ventral thecal sac and mild narrowing of the lateral recess bilaterally also mild narrowing of the inferior and inferior portion of the right neuroforamen without evidence of right foraminal L4 nerve root impingement. Patient describes the pain is constant sharp stabbing throbbing and shooting in the right leg as well as aching and dull in the back and cramping in the back as well. She reports no motor deficits but significant fatigability with the right lower extremity with walking or standing more than about 5 minutes. PAST MEDICAL HISTORY: PMH: Arthritis, cigarette smoking quit 2 years ago, hypothyroidism PREVIOUS SURGERIES: Past Surgical Hx: Hamstring tendon repair right leg 2019 with staph infection and reoperation x3. CURRENT MEDICATIONS: Current Meds: Active Scripts Medications Dose Route/Sig Max Daily Dose Days Date Category Vraylar (Cariprazine Hydrochloride) 1.5 Mg Capsule Unknown Dose PO DAILY 07/06/20 Reported Diazepam 5 Mg Tablet Unknown Dose PO DAILY 07/06/20 Reported Doxepin Hcl 10 Mg Capsule Unknown Dose PO DAILY 07/06/20 Reported Omeprazole 20 Mg Capsule.dr 20 Mg PO DAILY 30 01/31/19 Rx ALLERGIES; Allergies: Coded Allergies: levofloxacin (Verified Allergy, Intermediate, 04/19/20) FAMILY HISTORY: Family Hx: Hypothyroidism SOCIAL HISTORY: Social Hx: Patient does not rudy alcohol quit smoking 2 years ago does not use any illegal illicit or recreational drugs is single lives locally in [facility], reports she is currently on disability related to the current pain situation. REVIEW OF SYSTEMS: ROS: Positive for those items mentioned in history of present illness, all systems are reviewed, otherwise negative ,and are complete full and well-documented on patient's chart. PHYSICAL EXAM: VS: Blood pressure is 119/71 pulse 81 respirations 16 temperature 98.2 F height is 5 feet 4 inches weight is 198 pounds PE: PHYSICAL EXAMINATION: GENERAL: The patient is awake, alert, oriented, appropriate, very pleasant demeanor HEENT: Shows normocephalic, atraumatic. Extraocular movements are intact and sy mmetrical. Oral cavity: Mucous membranes moist and pink. Dentition is intact. NECK: Shows anterior throat supple without palpable lymphadenopathy noted. Swallow reflex symmetrical. CHEST: Shows normal on inspection. Breath sounds are clear bilaterally, no rales rhonchi or wheezes auscultated. HEART: Shows S1, S2 clear. No murmurs auscultated. ABDOMEN: Soft, nontender, nondistended, obese. No palpable organomegaly is noted. No rebound or guarding demonstrated. BACK: Shows spine grossly in the midline. Normal-appearing cervical lordotic curvature. Cervical paraspinous muscles show symmetrical on inspection with palpation some mild tenderness inferior aspect of the paraspinous musculature bilaterally but without radiation. Patient does show good rotation motion cervical spine both laterally as well as full extension full forward flexion with some moderate pain reported with extension only. There is slightly increased thoracic kyphosis, some flattening of the lumbar lordotic curvature. Lumbar paraspinous muscles show symmetrical on inspection, on palpation shows some moderate tenderness diffusely throughout the upper, middle and lower distribution of the paraspinous muscles bilaterally and also into the lower thoracic paraspinous musculature, firm and tender, but without specific trigger points, without radiation of pain. The patient has good rotational motion of the lumbar spine, both laterally as well as extension and flexion without significant difficulty. No tenderness over the spinous processes, sacrum or sacroiliac regions. EXTREMITIES: Lower extremities show deep tendon reflexes 2+ in the patellar and tendo calcaneus tendons. Motor exam is 4 on a scale of 5 with right dorsiflexion, extension, quadriceps and hamstring flexion and 5/5 on the left. Peripheral pulses are 1 posterior tibial. No peripheral edema is noted bilaterally. Lower extremities are warm and dry to touch, equal in color and appearance. Straight leg raise noted to be positive on the right about 40 degrees, left side is negative. Gaenslen's and Natalio's maneuvers are negative bilaterally as well. The patient is able to stand, stand on toes but loses balance quickly putting all of her weight on her right leg. Patient does walk with a slight favoring gait favoring the right lower extremity and is using a cane in her right hand. SKIN: Shows warm and dry, good turgor. No edema. No sores, rashes or bruising throughout. IMPRESSION: Impression: 49-year-old female with 1 year and a half history of low back and right lower extremity pain in a radicular fashion. MRI scan lumbar spine is noted Arthritis Hypothyroidism Plan: Options were discussed with the patient including conservative medical management physical therapies interventional techniques. Patient would like to pursue interventional techniques. We discussed a lumbar epidural steroid injection using descriptions as well as anatomical models to describe the procedure. Risks were discussed including but not limited to: Bleeding, infection, possibility of epidural hematoma and subsequent neurological compromise, dural puncture, headaches, spinal cord and/or nerve damage, side effects of steroid medication, and poor results regarding pain control. Patient understands and wished to proceed. Patient will return to clinic in approximately 2 weeks for follow-up, was counseled as to return appointment activity level and side effects to be aware of. Procedure is lumbar epidural steroid injection under local anesthetic using sterile prep and drape at the L4-5 level using C-arm fluoroscopic guidance in both AP and lateral views medications injected is 120 mg Depo-Medrol + 10 mL preservative-free normal saline and 2 mL contrast- condition at discharge is stable patient tolerated procedure well had no complications. GISELLE ALATORRE MD Jul 06, 2020 14:17
== END | disposition home or self-care (01) ==
LOC: PNCL 12:40
PROVIDERS: ATTEND Anesthesiology
DX: M54.5 Low back pain (principal); M79.604 Pain in right leg; M19.90 Unspecified osteoarthritis, unspecified site; E03.9 Hypothyroidism, unspecified; F17.210 Nicotine dependence, cigarettes, uncomplicated; Z79.899 Other long term (current) drug therapy; Z98.890 Other specified postprocedural states; Z88.1 Allergy status to other antibiotic agents
CPT/HCPCS: 62323; J1030; J1040; Q9965

== ENCOUNTER → 2020-07-30 | Outpatient (CLI) | payer MEDICAID ==
[~2020-07-30] MED LIST changes: +BUPIVACAINE MPF 0.25% 10 ML VIAL. ONE; -FAMO-63 PO; -IOHEXOL 180 MG/ML 10 ML VIAL. ONE; -methylPREDNISolone ACETATE 80 MG/ML VIAL. ONE
--- NOTE | 2020-07-30 11:26 | PDOC ---
Progress Note - Pain Clinic Date of Service: DOS: DATE: 07/30/20 TIME: 11:20 Diagnosis: Dx: Lumbar radiculopathy with lumbar degenerative disease Myofascial pain with cervicalgia History or Present Illness: HPI: 49-year-old female returns for follow-up status post lumbar epidural steroid x1. Patient reports about 75% improvement for the first week and the pain returning in the low back and right lower extremity but her chief complaint today is neck upper back pain on the right side as well as right shoulder pain posteriorly. Patient reports is beginning worse with the past several days, is not result of any specific injury or accident that she is aware of, but has been getting much worse over the past few days tense tight described as severe aching sharp in the base of the neck on the right side as well as on the left side but also in the right upper shoulder and upper mid back. Patient reports is an 8 on scale 10 is worse over the past week 8 on average 8 its least is an 8 today. Patient reports no loss of motor function but is having difficulty sleeping secondary to the pain in the neck and the shoulder over the past few days as well. Patient reports her low back is doing much better however but still some pain in the low back and the right lower extremity radiating into the right lateral thigh anterior lateral medial thigh and medial lower leg. Patient reports no medical or sensory deficits no new bowel or bladder incontinence or other complaints. Physical Exam: VS: Blood pressure is 137/82 pulse 68 respirations are 18 temperature is 97.3 F weight is 189 pounds PE: PHYSICAL EXAMINATION: GENERAL: The patient is awake, alert, oriented, appropriate, very pleasant demeanor HEENT: Shows normocephalic, atraumatic. Extraocular movements are intact and symmetrical. Oral cavity: Mucous membranes moist and pink. NECK: Shows anterior throat supple without palpable lymphadenopathy noted. Swallow reflex symmetrical. CHEST: Shows normal on inspection. Breath sounds are clear bilaterally. HEART: Shows S1, S2 clear. No murmurs auscultated. ABDOMEN: Soft, nontender, nondistended, obese. No palpable organomegaly is noted. BACK: Shows spine grossly in the midline. Normal-appearing cervical lordotic curvature. Cervical paraspinous muscles show symmetrical with inspection on palpation some very firm tender ropelike musculature consistent with trigger point areas of musculature in the right and inferior left cervical paraspinous posterior medial and lower right and inferior aspect on the left also into the right superior medial trapezius with very firm ropelike musculature consistent with trigger point areas as well. No radiation is demonstrated with palpation. Patient is rhomboid distribution and thoracic paraspinous musculature on the right but not the left shows significant tenderness and very firm ropelike musculature again consistent with trigger point areas on the right side only without radiation. Left side is supple and without significant tenderness. There is increased thoracic kyphosis, some flattening of the lumbar lordotic curvature. Lumbar paraspinous muscles show symmetrical on inspection, on palpation shows some moderate tenderness diffusely throughout the upper, middle and lower distribution of the paraspinous muscles, but without specific trigger points, without radiation of pain. The patient has good rotational motion of the lumbar spine, both laterally as well as extension and flexion without significant difficulty. No tenderness over the spinous processes, sacrum or sacroiliac regions. EXTREMITIES: Lower extremities show deep tendon reflexes 2+ in the patellar and tendo calcaneus tendons. Motor exam is 4 on a scale of 5 with right dorsiflexion, extension, quadriceps and hamstring flexion and 5/5 on the left. Peripheral pulses are 1+ posterior tibial. No peripheral edema is noted bilaterally. Lower extremities are warm and dry to touch, equal in color and appearance. SKIN: Shows warm and dry, good turgor. No edema. No sores, rashes or bruising throughout. Procedure: Procedure: Options were discussed with the patient. Patient's old chart reviews her current medication regimen updated current review of systems updated today as well. We will proceed with trigger point injections of the bilateral cervical paraspinous posture, right trapezius musculature, right rhomboid musculature, right thoracic paraspinous musculature. Discussed including but not limited to bleeding infection possibility of intravascular injection sequelae ice side effects of steroid medication pneumothorax spread local anesthetic and numbness as well as poor results regarding pain control. Patient understands wished to proceed. Patient will return to clinic in approximately 2 weeks for follow-up was counseled as to return appointment activity level and side effects to be aware of. Medication Injected: Med Injected: Under sterile prep and drape patient in sitting position, trigger points were identified in the cervical paraspinous posture bilaterally right trapezius musculature right rhomboid musculature and right thoracic paraspinous musculatur e. Each was injected using a 25-gauge needle after negative aspiration a total of 10 cc 0.25% Vivacaine and total of 40 mg Depo-Medrol. Patient tolerated procedure well and had no complications. Patient will return to clinic approxi- 2 weeks for follow-up. Patient was counseled as to return appointment activity level and side effects to be aware of. Condition at Discharge: Condition at Discharge: Condition at discharge is stable, patient tolerated procedure well and had no complications. GISELLE ALATORRE MD Jul 30, 2020 11:26
--- NOTE | 2020-07-30 11:28 | PDOC4 ---
PROCEDURE Procedure Patient was consented for trigger point injections bilateral cervical parasp inous posture right trapezius musculature right rhomboid musculature and right thoracic paraspinous musculature. Risks were discussed including but not limited to bleeding infection possibility of intravascular injection sequelae, pneumothorax, spread to local anesthetic and numbness, poor results regarding pain control. Patient understands wishes to proceed. Under sterile prep and drape patient in sitting position, trigger points were identified and sterilely prepped and the bilateral cervical paraspinous posture right trapezius musculature right rhomboid musculature and right thoracic paraspinous musculature. Injected with 25-gauge needle after negative aspiration a total of 10 cc 0.25% bupivacaine and 40 mg of Depo-Medrol. Patient tolerated procedure well and had no complications. GISELLE ALATORRE MD Jul 30, 2020 11:28
== END | disposition home or self-care (01) ==
LOC: PNCL 10:23
PROVIDERS: ATTEND Anesthesiology
DX: M51.16 Intervertebral disc disorders with radiculopathy, lumbar region (principal); M54.2 Cervicalgia; M79.10 Myalgia, unspecified site; F17.210 Nicotine dependence, cigarettes, uncomplicated; Z79.899 Other long term (current) drug therapy; Z98.890 Other specified postprocedural states; Z88.1 Allergy status to other antibiotic agents
CPT/HCPCS: 20553; J1030; J3490

== ENCOUNTER → 2020-08-13 | Outpatient (CLI) | payer MEDICAID ==
[~2020-08-13] MED LIST changes: -BUPIVACAINE MPF 0.25% 10 ML VIAL. ONE; +IOHEXOL 180 MG/ML 10 ML VIAL. ONE; +methylPREDNISolone ACETATE 80 MG/ML VIAL. ONE
--- NOTE | 2020-08-13 11:12 | PDOC ---
Progress Note - Pain Clinic Date of Service: DOS: DATE: 08/13/20 TIME: 11:08 Diagnosis: Dx: Lumbar radiculopathy with lumbar degenerative disc disease Myofascial pain with cervicalgia History or Present Illness: HPI: 49-year-old female returns for follow-up status post lumbar epidural steroid injection x1 and trigger point injections. Patient ports a trigger point dose of not significantly helpful in the neck and shoulder pain but the low back and right lower extremity pain was significantly decreased by about 75% for the first week following her epidural injection. Patient reports that now she "cannot sit still" secondary to the pain in the low back and the right leg patient reports radiating to the posterior gluteus posterior lateral thigh lateral anterior thigh anterior medial thigh with walking and standing. Patient reports is better with sitting or laying down but is waking her from sleep about every 1-2 hours. Patient ports is aching in the low back severe at times radiating the right lower extremity and shooting pain is tight as well patient's neck and shoulders also tight and burning. Patient reports her pain is an 8 on scale 10 at all times worst least and average and is an 8 today. Patient reports no new motor or sensory deficits no new bowel or bladder incontinence or other complaints. Physical Exam: VS: Blood pressure is 99/61 pulse 65 respirations 16 temperature 97.4 F weight is 197 pounds PE: PHYSICAL EXAMINATION: GENERAL: The patient is awake, alert, oriented, appropriate, very pleasant demeanor HEENT: Shows normocephalic, atraumatic. Extraocular movements are intact and symmetrical. NECK: Shows anterior throat supple without palpable lymphadenopathy noted. Swallow reflex symmetrical. CHEST: Shows normal on inspection. Breath sounds are clear bilaterally, no rales or rhonchi bilaterally. HEART: Shows S1, S2 clear. No murmurs auscultated. ABDOMEN: Soft, nontender, nondistended, obese. No palpable organomegaly is noted. BACK: Shows spine grossly in the midline. Normal-appearing cervical lordotic curvature. Cervical paraspinous but shows symmetrical with inspection on pa lpation some significant tenderness throughout the upper middle lower decrease the paraspinous musculature as well as into the superior medial trapezius bilaterally. No specific radiation but very firm ropelike musculature throughout bilaterally. There is slightly increased thoracic kyphosis, some minor flattening of the lumbar lordotic curvature. Lumbar paraspinous muscles show symmetrical on inspection, on palpation shows some moderate tenderness diffusely throughout the upper, middle and lower distribution of the paraspinous muscles, but without specific trigger points, without radiation of pain. The patient has good rotational motion of the lumbar spine, both laterally as well as extension and flexion without significant difficulty. No tenderness over the spinous processes, sacrum or sacroiliac regions. EXTREMITIES: Lower extremities show deep tendon reflexes 2+ in the patellar and tendo calcaneus tendons. Motor exam is 4 on a scale of 5 with right dorsiflexion, extension, quadriceps and hamstring flexion and 5/5 on the left. Peripheral pulses are 1+ posterior tibial. No peripheral edema is noted bilaterally. Lower extremities are warm and dry to touch, equal in color and appearance. SKIN: Shows warm and dry, good turgor. No edema. No sores, rashes or bruising throughout. Procedure: Procedure: Options were discussed with patient. Patient chart reviewed as her current medication regimen updated current review of systems updated today as well. We will proceed with lumbar epidural steroid injection #2 today with fluoroscopic guidance. Risks were discussed including but not limited to: Bleeding, infection, possibility of epidural hematoma and subsequent neurological compromise, dural puncture, headaches, spinal cord and/or nerve damage, side effects of steroid medication, and poor results regarding pain control. Patient understands and wished to proceed. Patient will return to the clinic approximate 2 weeks for follow-up, was counseled as to return appointment act ivity level and side effects to be aware of. Medication Injected: Med Injected: Procedure is lumbar epidural steroid injection under local anesthetic using sterile prep and drape at the L4-5 level using C-arm fluoroscopic guidance in both AP and lateral views medications injected is 120 mg Depo-Medrol + 10 mL preservative-free normal saline and 2 mL contrast- condition at discharge is stable patient tolerated procedure well had no complications. Condition at Discharge: Condition at Discharge: Condition at discharge is stable, patient alert procedure well and had no co mplications. GISELLE ALATORRE MD Aug 13, 2020 11:12
--- NOTE | 2020-08-13 11:13 | PDOC4 ---
PROCEDURE Procedure He was consented for lumbar epidural steroid injection. Risks were discussed including but not limited to: Bleeding, infection, possibility of epidural hematoma and subsequent neurological compromise, dural puncture, headaches, spinal cord and/or nerve damage, side effects of steroid medication, and poor results regarding pain control. Patient understands and wished to proceed. Procedure is lumbar epidural steroid injection under local anesthetic using s terile prep and drape at the L4-5 level using C-arm fluoroscopic guidance in both AP and lateral views medications injected is 120 mg Depo-Medrol + 10 mL preservative-free normal saline and 2 mL contrast- condition at discharge is stable patient tolerated procedure well had no complications. GISELLE ALATORRE MD Aug 13, 2020 11:13
== END | disposition home or self-care (01) ==
LOC: PNCL 10:18
PROVIDERS: ATTEND Anesthesiology
DX: M51.16 Intervertebral disc disorders with radiculopathy, lumbar region (principal); M54.2 Cervicalgia; M79.10 Myalgia, unspecified site; F17.210 Nicotine dependence, cigarettes, uncomplicated; Z79.899 Other long term (current) drug therapy; Z98.890 Other specified postprocedural states; Z88.1 Allergy status to other antibiotic agents
CPT/HCPCS: 62323; J1030; J1040; Q9965

== ENCOUNTER 2020-10-08 07:20 | Emergency (ER) | payer MEDICAID ==
[~2020-10-08] VITALS: Ht 162.6 cm; Wt 85.9 kg
[~2020-10-08 07:20] MED LIST changes: -IOHEXOL 180 MG/ML 10 ML VIAL. ONE; -methylPREDNISolone ACETATE 40 MG/ML VIAL. ONE; -methylPREDNISolone ACETATE 80 MG/ML VIAL. ONE
[2020-10-08] MEDS ORDERED: ONDANSETRON PF 4 MG/2 ML VIAL. ONE (07:50)
[2020-10-08] MEDS ORDERED: FAMOTIDINE 20 MG/2 ML VIAL IVP ONE (08:15)
[2020-10-08] MEDS ORDERED: METOCLOPRAMIDE HCL 10 MG/2 ML VIAL. IVP ONE (08:15)
[2020-10-08] MEDS ORDERED: IV NORMAL SALINE 1000ML BAG 1,000 ML IV SCH (08:15)
[2020-10-08] MEDS ORDERED: IV NORMAL SALINE 1000ML BAG 1,000 ML IV ONE (08:15)
[2020-10-08 08:19] LABS: BASO % 0 % (0-3); EOS % 0 % (0-3); HEMATOCRIT 40.9 % (36.0-47.0); LYMPH # 1.6 x10^3/uL (1.0-4.8); LYMPH % 11 % (24-48); MEAN CORPUSCULAR HEMOGLOBIN 32 pg (25-35); MEAN CORPUSCULAR HGB CONC 34 g/dL (31-37); MEAN CORPUSCULAR VOLUME 93 fL (79-100); MONO # 0.5 x10^3/uL (0.0-1.1); MONO % 4 % (0-9); NEUT # 12.2 x10^3/uL (1.8-7.7); NEUT % 85 % (31-73); PLATELET COUNT 279 x10^3/uL (140-400); RED BLOOD COUNT 4.38 x10^6/uL (3.50-5.40); WHITE BLOOD COUNT 14.4 x10^3/uL (4.0-11.0)
--- NOTE | 2020-10-08 08:25 | PHYS DOC ---
Past Medical History Past Medical History: Anxiety, Depression, GERD, Schizophrenia Additional Past Medical Histor: ulcers, fibroids, chronic back pain Past Surgical History: Tubal ligation Additional Past Surgical Histo: hamstring surgery in 03/2019 Smoking Status: Former Smoker Additional Information: quit smoking 2018 Alcohol Use: None Drug Use: None General Adult EDM: Chief Complaint: ABDOMINAL PAIN HPI: HPI: 50 yo F PMH gastroparesis, anxiety/depression and gerd, presents to the ED with complaints of nausea, nonbloody nonbilious vomiting stating "It's the food I ate. There was cayenne pepper in the chicken that my sister cooked." Patient states she feels as if meat aggravates her gastritis. Is on omeprazole daily. Symptoms started around last night at 10 PM with associated flatulence, no diarrhea or constipation. Cannot recall her last EGD and states, "it should be in the records." Denies any anticoagulants. Review of Systems: Review of Systems: Constitutional: Denies fever or chills. [] Eyes: Denies change in visual acuity. [] HENT: Denies nasal congestion or sore throat. [] Respiratory: Denies cough or shortness of breath or hemoptysis Cardiovascular: Denies chest pain or edema or syncope GI: Denies abdominal pain, melena, hematochezia, hematemesis, or diarrhea. [] : Denies dysuria or hematuria Musculoskeletal: Denies back pain or joint pain or flank pain Integument: Denies rash or diaphoresis Neurologic: Denies headache, neck pain, focal weakness or sensory changes. [] Endocrine: Denies polyuria or polydipsia. [] Lymphatic: Denies swollen glands. [] Psychiatric: Denies depression or anxiety. [] Heart Score: C/O Chest Pain: No Risk Factors: Risk Factors: DM, Current or recent (<one month) smoker, HTN, HLP, family history of CAD, obesity. Risk Scores: Score 0 - 3: 2.5% MACE over next 6 weeks - Discharge Home Score 4 - 6: 20.3% MACE over next 6 weeks - Admit for Clinical Observation Score 7 - 10: 72.7% MACE over next 6 weeks - Early Invasive Strategies Current Medications: Current Medications Medications (Trade) Dose Ordered Sig/Maribell Start Time Stop Time Status Last Admin Dose Admin Famotidine (Pepcid Vial) 20 mg 1X ONCE 10/08/20 08:15 10/08/20 08:16 DC Metoclopramide HCl (Reglan Vial) 10 mg 1X ONCE 10/08/20 08:15 10/08/20 08:16 DC Ondansetron HCl (Zofran) 4 mg STK-MED ONCE 10/08/20 07:50 10/08/20 07:50 DC Sodium Chloride 1,000 ml @ 1,000 mls/hr 1X ONCE 10/08/20 08:15 10/08/20 09:14 Allergies: Allergies: Allergies Coded Allergies Type Severity Reaction Last Updated Verified levofloxacin Allergy Intermediate itching 10/08/20 Yes Physical Exam: PE: Constitutional: Well developed, well nourished, no acute distress, non-toxic appearance. HENT: Normocephalic, atraumatic, Eyes: EOMI, conjunctiva normal, no discharge. Neck: Normal range of motion, supple, Cardiovascular: S1/2 present, regular rhythm Lungs & Thorax: Speaking in full sentences, bilateral equal chest rise, no tachypnea or increased work of breathing Abdomen: soft, no tenderness, dry heaving in ED, no peritonitis or guarding on abdominal exam Skin: Warm, dry, no erythema, no rash. [] Back: No tenderness, no CVA tenderness. [] Extremities: No tenderness, no cyanosis, no lower extremity edema Neurologic: Alert and oriented X 3, normal motor function, normal sensory function, no focal deficits noted. [] Psychologic: Affect normal, judgement normal, mood-throwing self around/dramatic, later re-evaluated clam and resting, immediate improvement with pepcid/reglan Current Patient Data: Vital Signs: Vital Signs Date Time Temp Pulse Resp B/P (MAP) Pulse Ox O2 Delivery O2 Flow Rate FiO2 10/08/20 07:34 98.2 57 28 135/76 (95) 100 Room Air 98.2 EKG: EKG: sinus bradycardia 53 bpm, NAD, no TWI/AUREA/STD Radiology/Procedures: Radiology/Procedures: IMAGING REPORT Signed PATIENT: ROSE RODRIGUEZ ACCOUNT: [id number] : 1970 LOCATION: ER AGE: 50 SEX: F EXAM STATUS: REG ER ORD. PHYSICIAN: JOLIE FRANCOIS DO REASON: n/v PROCEDURE: PORTABLE CHEST 1V Exam Date: 10/08/2020 8:26 AM XR CHEST 1V Indication: Reason: n/v / Spl. Instructions: / History: Comparison: December 12, 2015 FINDINGS/ IMPRESSION: The cardiac silhouette and pulmonary vasculature are within normal limits. There is no focal consolidation, pleural effusion or pneumothorax. The visualized osseous structures are intact. Electronically signed by: Stacey Hi MD (10/08/2020 8:41 AM) [id number] DICTATED and SIGNED BY: STACEY HI MD DATE: 10/08/20 [id number] IMAGING REPORT Signed PATIENT: ROSE RODRIGUEZ ACCOUNT: [id number] : 1970 LOCATION: ER AGE: 50 SEX: F EXAM STATUS: REG ER ORD. PHYSICIAN: JOLIE FRANCOIS DO REASON: epigastric abd pain PROCEDURE: CT ABD PELV W/ IV CONTRST ONLY Exam Date: 10/08/2020 10:[address] ABDOMEN+PELVIS W Indication: Reason: epigastric abd pain / Spl. Instructions: omni 300 75ml / History: TECHNIQUE: CT examination of the abdomen and pelvis was performed following the administration of nonionic intravenous contrast. One or more of the following dose reduction techniques were utilized: *Automated exposure control (AEC) *Adjustment of mA and/or kV according to patient size *Use of iterative reconstruction technique *CT scan done according to ALARA, or ALARA/IMAGE GENTLY COMPARISON: May 04, 2020 FINDINGS: Motion artifact limits evaluation. The visualized lung bases are clear. The liver, gallbladder, spleen, pancreas, adrenal glands and kidneys are normal. Urinary bladder is normal in appearance. There is no bowel obstruction or inflammation. The appendix is normal. Mild atherosclerotic calcifications are seen. No lymphadenopathy or ascites is seen. Degenerative changes are seen in the spine. IMPRESSION: No evidence of acute intra-abdominal pathology. Electronically signed by: Stacey Hi MD (10/08/2020 10:30 AM) [id number] DICTATED and SIGNED BY: STACEY HI MD DATE: 10/08/20 [id number] 0 Course & Med Decision Making: Course & Med Decision Making Pertinent Labs and Imaging studies reviewed. (See chart for details) Concern for nausea and vomiting in the setting of gastroparesis versus GERD, no associated chest pain. On reevaluation patient's nausea and vomiting and pain have resolved. Improved with Reglan and Pepcid. Has not taken her omeprazole for the day but was given pantoprazole in the ED. Abdominal exam benign/soft. Will discharge home with strict ED return precautions were given for chest pain, dyspnea, syncope, intractable nausea or vomiting or worsening abdominal or back pain. Encouraged urgent outpatient follow-up with PMD in 24 to 48 hours, will refer to GI for definitive management. Life-threatening processes were considered but are low suspicion at this time, given history, physical exam and ED workup. Pt was educated on all prescription medications and adverse effects. All patient's questions were answered and pt was stable at time of discharge. Life/limb-threatening differential includes but is not limited to, acute coronary syndrome/myocardial infarction, Boerhaave's, DKA, gastrointestinal bleeding, intracranial hemorrhage, ischemic bowel, meningitis, sepsis, surgical abdomen (AAA), toxidrome (drug over/overdose/carbon monoxide, etc), ovarian/testicular torsion, trauma, or infection/sepsis. I spoken with the patient and her caregivers. I explained the patient's condition, diagnoses and treatment plan based on the information available to me at this time. I have answered the patient and her caregiver's questions and addressed any concerns. The patient and her caregivers have a good understanding of patient's diagnosis, condition and treatment plan as can be expected at this point. Vital signs have been stable. Patient's condition is stable and appropriate for discharge from the emergency department. Patient will pursue further outpatient evaluation with primary care physician or other designated or consulting physician as outlined in the discharge instructions. The patient and/or caregivers are agreeable to this plan of care and follow-up instructions have been explained in detail. The patient and/or caregivers have received these instructions in written form and have expressed an understanding of the discharge instructions. The patient and/or caregivers are aware that any significant change of condition or worsening of symptoms should prompt immediate return to this or the closest emergency department or call to 911. Denise Disclaimer: Denise Disclaimer: This electronic medical record was generated, in whole or in part, using a voice recognition dictation system. Departure Departure Impression: Primary Impression: Nausea & vomiting Additional Impression: Epigastric abdominal pain Disposition: HOME / SELF CARE / HOMELESS Condition: STABLE Referrals: ADARSH HYATT (PCP) Follow-up in the next 24 to 48 hours Patient Instructions: Abdominal Pain, Nausea and Vomiting Additional Instructions: FOLLOW UP WITH GASTROENTEROLOGY: Gastroenterology [facility] Address: [address] [place] [address] EMERGENCY DEPARTMENT GENERAL DISCHARGE INSTRUCTIONS Thank you for coming to [facility] Emergency Department (ED) today and trusting us with you care. We trust that you had a positive experience in our Emergency Department. If you wish to speak to the department management, you may call the Director at [phone]. YOUR FOLLOW UP INSTRUCTIONS ARE FOLLOWS: 1. Do you have a private Doctor? If you do not have a private doctor, please ask for a resource list of physicians or clinics that may be able to assist you with follow up care. 2. The Emergency Physicain has interpreted your x-rays. The X-Ray specialist will also review them. If there is a change in the findings, you will be notified in 48 hours when at all possible. 3. A lab test or culture has been done, your results will be reviewed and you w ill be notified if you need a change in treatment. ADDITIONAL INSTRUCTIONS AND INFORMATION: 1. Your care today has been supervised by a physician who is specially trained in emergency care. Many problems require more than one evaluation for a complete diagnosis and treatment. We recommend that you schedule your follow up appointment as recommended to ensure complete treatment of you illness or injury. If you are unable to obtain follow up care and continue to have a problem, or if your condition worsens, we recommend that you return to the ED. 2. We are not able to safely determine your condition over the phone nor are we able to give sound medical advice over the phone. For these safety reasons, if you call for medical advice we will ask you to come to the ED for further evaluation. 3. If you have any questions regarding these discharge instructions please call the ED at [phone]. SAFETY INFORMATION: In the interest of safety, wellness, and injury prevention; we encourage you to wear your sealbelt, if you smoke; quite smoking, and we encourage family to use a protective helmet for bicycling and other sporting events that present an increased risk for head injury. IF YOUR SYMPTOMS WORSEN OR NEW SYMPTOMS DEVELOP, OR YOU HAVE CONCERNS ABOUT YOUR CONDITION; OR IF YOUR CONDITION WORSENS WHILE YOU ARE WAITING FOR YOUR FOLLOW UP APPOINTMENT; EITHER CONTACT YOUR PRIMARY CARE DOCTOR, THE PHYSICIAN WHOSE NAME AND NUMBER YOU WERE GIVEN, OR RETURN TO THE ED IMMEDIATELY. Scripts Ondansetron (ONDANSETRON ODT) 4 Mg Tab.rapdis 1 TAB PO PRN Q6-8HRS, #20 TAB Prov: JOLIE FRANCOIS DO 10/08/20 Famotidine (PEPCID) 20 Mg Tablet 20 MG PO BID for 14 Days, #28 TAB Prov: JOLIE FRANCOIS DO 10/08/20 JOLIE FRANCOIS DO Oct 08, 2020 08:25
--- NOTE | 2020-10-08 08:43 | RAD ---
Exam Date: 10/08/2020 8:26 AM XR CHEST 1V Indication: Reason: n/v / Spl. Instructions: / History: Comparison: December 12, 2015 FINDINGS/ IMPRESSION: The cardiac silhouette and pulmonary vasculature are within normal limits. There is no focal consolidation, pleural effusion or pneumothorax. The visualized osseous structures are intact. Electronically signed by: Ghanshyam Hi MD (10/08/2020 8:41 AM) [id number]
[2020-10-08 09:59] LABS: CALCIUM 10.6 mg/dL (8.5-10.1); CREATININE 0.8 mg/dL (0.6-1.0); GFR 91.9; PROTHROMBIN TIME PATIENT 12.4 SEC (11.7-14.0)
[2020-10-08 10:05] LABS: ALBUMIN 4.2 g/dL (3.4-5.0); ALBUMIN/GLOBULIN RATIO 1.2 (1.0-1.7); DIRECT BILIRUBIN 0.1 mg/dL (0.0-0.2); MAGNESIUM 1.7 mg/dL (1.8-2.4); TOTAL BILIRUBIN 0.4 mg/dL (0.2-1.0); TOTAL PROTEIN 7.6 g/dL (6.4-8.2)
[2020-10-08] MEDS ORDERED: IOHEXOL 300 MG/ML 100ML VIAL. IV ONE (10:15)
[2020-10-08] MEDS ORDERED: HYDROmorphone 2 MG/ML VIAL IVP ONE (10:15)
[2020-10-08] MEDS ORDERED: MAGNESIUM SULFATE 1GM 100 ML IV ONE (10:15)
[2020-10-08] MEDS ORDERED: PROCHLORPERAZINE 10 MG/2 ML VIAL. IV ONE (10:15)
[2020-10-08] MEDS ORDERED: CONTRAST GIVEN. MC PRN (10:15)
--- NOTE | 2020-10-08 10:33 | RAD ---
Exam Date: 10/08/2020 10:[address] ABDOMEN+PELVIS W Indication: Reason: epigastric abd pain / Spl. Instructions: omni 300 75ml / History: TECHNIQUE: CT examination of the abdomen and pelvis was performed following the administration of no nionic intravenous contrast. One or more of the following dose reduction techniques were utilized: *Automated exposure control (AEC) *Adjustment of mA and/or kV according to patient size *Use of iterative reconstruction technique *CT scan done according to ALARA, or ALARA/IMAGE GENTLY COMPARISON: May 04, 2020 FINDINGS: Motion artifact limits evaluation. The visualized lung bases are clear. The liver, gallbladder, spleen, pancreas, adrenal glands and kidneys are normal. Urinary bladder is normal in appearance. There is no bowel obstruction or inflammation. The appendix is normal. Mild atherosclerotic calcifications are seen. No lymphadenopathy or ascites is seen. Degenerative changes are seen in the spine. IMPRESSION: No evidence of acute intra-abdominal pathology. Electronically signed by: Ghanshyam Hi MD (10/08/2020 10:30 AM) [id number]
[2020-10-08 11:00] VITALS: BP 101/54
[2020-10-08] MEDS ORDERED: ONDA4TAB12 PO (11:03)
[2020-10-08] MEDS ORDERED: FAMO-63 PO (11:03)
== END 2020-10-08 11:57 | disposition home or self-care (01) ==
LOC: ER 07:20
DX: R11.2 Nausea with vomiting, unspecified (principal); R10.13 Epigastric pain; K21.9 Gastro-esophageal reflux disease without esophagitis; F20.9 Schizophrenia, unspecified; G89.29 Other chronic pain; Z87.891 Personal history of nicotine dependence; Z88.1 Allergy status to other antibiotic agents
CPT/HCPCS: 36415; 71045; 74177; 80053; 82248; 83690; 83735; 83880; 84484; 85025; 85610; 85730; 93005; 96361; 96365; 96375; 99285; J1170; J2765; J3475; J3490; J7030; Q9967

== ENCOUNTER 2020-10-30 08:03 | Emergency (ER) | payer MEDICAID ==
[~2020-10-30] VITALS: Ht 160 cm; Wt 90.9 kg
[~2020-10-30 08:03] MED LIST changes: +FAMO-63 PO
[2020-10-30] MEDS ORDERED: KETOROLAC 60 MG/2 ML VIAL. IM ONE (09:30)
[2020-10-30] MEDS ORDERED: DEXAMETHASONE 4 MG TABLET PO ONE (09:30)
[2020-10-30] MEDS ORDERED: LIDO:MAALOX 1:1 20 ML SINGLE DOSE. SWSW ONE (09:30)
[2020-10-30] MEDS ORDERED: METHOCARBAMOL 750 MG TABLET PO ONE (09:30)
--- NOTE | 2020-10-30 09:54 | ED.ADGEN ---
Past Medical History Past Medical History: Other Additional Past Medical Histor: SPINAL STENOSIS Past Surgical History: Other Additional Past Surgical Histo: BACK (SPINAL STENOSIS) Smoking Status: Former Smoker Alcohol Use: None Drug Use: None General Adult EDM: Chief Complaint: BACK PAIN - NO INJURY HPI: HPI: Patient is a 50-year-old female who presents to the emergency room complaining of mid and lower back pain. Patient states that it feels like her mid back locks into place and she is unable to move it. She has been having back pain for the last 2 years but states that this morning she felt a pop in the left hip and since then has had severe back spasms. She denies any numbness or weakness in her legs. She has not had any bowel or bladder incontinence or retention. She denies any trauma. She denies any kind of fevers. She has never seen a neurosurgeon for this. She has been told that she has a bulging disc and spinal stenosis. She has not tried to take anything at home. She used to get epidural shots but has not had one in quite some time. Review of Systems: Review of Systems: Complete ROS is negative unless otherwise documented in HPI Current Medications: Current Medications Medications (Trade) Dose Ordered Sig/Maribell Start Time Stop Time Status Last Admin Dose Admin Dexamethasone (Decadron) 10 mg 1X ONCE 10/30/20 09:30 10/30/20 09:34 DC 10/30/20 10:01 10 MG Ketorolac Tromethamine (Toradol Im) 60 mg 1X ONCE 10/30/20 09:30 10/30/20 09:34 DC 10/30/20 10:02 60 MG Lidocaine (Lidoderm) 1 patch DAILY 10/30/20 10:00 10/30/20 10:02 1 PATCH Methocarbamol (Robaxin) 750 mg 1X ONCE 10/30/20 09:30 10/30/20 09:34 DC 10/30/20 10:05 750 MG Multi-Ingredient Mouthwash/Gargle (Gi Cocktail) 20 ml 1X ONCE 10/30/20 09:30 10/30/20 09:34 DC 10/30/20 10:02 20 ML Allergies: Allergies: Allergies Coded Allergies Type Severity Reaction Last Updated Verified levofloxacin Allergy Intermediate itching 10/08/20 Yes Physical Exam: PE: General: Awake, alert, NAD. Well Nourished, well hydrated. Cooperative HEENT: Atraumatic, EOMI, PERRL, airway patent, moist oral mucosa Neck: Supple, trachea midline Respiratory: CTA bilaterally, normal effort, no wheezing/crackles CV: RRR, no murmur, cap refill <2 GI: Soft, nondistended, nontender, no masses MSK: Back: Diffuse back tenderness from mid thoracic towards bilateral buttocks with muscle spasms Skin: Warm, dry, intact Neuro: A&O x3, speech NL, sensory and motor grossly intact, no focal deficits Psych: Normal affect, normal mood, not suicidal or homicidal Current Patient Data: Vital Signs: Vital Signs Date Time Temp Pulse Resp B/P (MAP) Pulse Ox O2 Delivery O2 Flow Rate FiO2 10/30/20 10:21 70 16 127/58 (81) 97 Room Air 10/30/20 08:07 99.0 99.0 EKG: EKG: [] Heart Score: C/O Chest Pain: N/A Risk Factors: Risk Factors: DM, Current or recent (<one month) smoker, HTN, HLP, family history of CAD, obesity. Risk Scores: Score 0 - 3: 2.5% MACE over next 6 weeks - Discharge Home Score 4 - 6: 20.3% MACE over next 6 weeks - Admit for Clinical Observation Score 7 - 10: 72.7% MACE over next 6 weeks - Early Invasive Strategies Radiology/Procedures: Radiology/Procedures: [] Course & Med Decision Making: Course & Med Decision Making Labs and Imaging studies reviewed. (See chart for details) Patient is a 50-year-old female who presents to the Emergency room with non- traumatic back pain. Patient denies bowel incontinence, urinary retention, fever, numbness, weakness. On exam, patient does not have a neurologic deficits, saddle anesthesia, gait difficulty, signs of trauma, or wounds near area of pain. Patient does not have a history of cancer or prolonged steroid use. At this time, patient does not have any signs, symptoms, or risk factors of emergent causes of back pain making cauda equina, spinal abscess, transverse myelitis, fractures, and other causes of emergent back pain highly unlikely. At this time, patient does not need any further work up for their back pain and will be treated symptomatically. Patient eloped from ER after medications were given. Dragon Disclaimer: Dragon Disclaimer: This electronic medical record was generated, in whole or in part, using a voice recognition dictation system. Departure Departure Impression: Primary Impression: Chronic back pain Disposition: 07 LEFT AWOL/ELOPED Condition: STABLE Referrals: ADARSH HYATTP-BC (PCP) CHRIS LEUNG MD October 30, 2020 09:54
[2020-10-30] MEDS ORDERED: LIDOCAINE (700MG/PATCH) PATCH. TD SCH (10:00)
[2020-10-30 10:21] VITALS: BP 127/58
== END 2020-10-30 10:26 | disposition left against medical advice (07) ==
LOC: ER 08:03
DX: G89.29 Other chronic pain (principal); M54.5 Low back pain; M54.6 Pain in thoracic spine; Z88.1 Allergy status to other antibiotic agents
CPT/HCPCS: 96372; 99284; J1885

== ENCOUNTER → 2020-11-02 | Outpatient (CLI) | payer MEDICAID ==
[2020-10-30 10:21] VITALS: BP 127/58
--- NOTE | 2020-11-02 11:13 | PDOC ---
Progress Note - Pain Clinic Date of Service: DOS: DATE: 11/02/20 TIME: 11:09 Diagnosis: Dx: Lumbar radiculopathy with lumbar degenerative disc disease Myofascial pain Cervicalgia History or Present Illness: HPI: 50-year-old female returns for follow-up status post lumbar epidural steroid action x2. Patient reports that the first injection helped significantly but the second 1 was only about 40% better patient does not want to try any further at this time patient was sent to see physical therapy however she was unable to keep the appointment and we will reorder this for her by her request. Patient reports that she has felt "locked up" since her last injection she is walking with significant pain in the back itself mainly in the mid back and upper back between the shoulder blades as her main complaint as well as in the base the neck patient reports it is a "pinching" in the gluteus as well on the right side unable to sit for long periods and says some muscle spasms in the mid upper back which are much worse patient reports it wakes her from sleep occasionally not every night reports no new motor or sensory deficits describes the pain as aching and tight in the back tingling and cramping in the shoulders and upper back unbearable at times in the neck and shoulders as well patient reports a 10 on scale 10 is worse over the past week 10 on average 10 its least is a 10 today. Physical Exam: VS: Blood pressure is 125/73 pulse 65 respirations 16 temperature is 97.9 F weight is 196 PE: PHYSICAL EXAMINATION: GENERAL: The patient is awake, alert, oriented, appropriate, very pleasant demeanor HEENT: Shows normocephalic, atraumatic. Extraocular movements are intact and symmetrical. Oral cavity: Mucous membranes moist and pink. Dentition is intact. NECK: Shows anterior throat supple without palpable lymphadenopathy noted. Swallow reflex symmetrical. CHEST: Shows normal on inspection. Breath sounds are clear bilaterally. HEART: Shows S1, S2 clear. No murmurs auscultated. ABDOMEN: Soft, nontender, nondistended, obese. No palpable organomegaly is noted. BACK: Shows spine grossly in the midline. Normal-appearing cervical lordotic curvature. Cervical paraspinous muscles show symmetrical with inspection on palpation some significant tenderness in the inferior aspect the cervical paraspinous musculature bilaterally into the superior medial trapezius bilater ally also into the rhomboid distribution very firm and very tender diffusely throughout the left than the right without radiation. There is slightly increased thoracic kyphosis, some minor flattening of the lumbar lordotic curvature. Lumbar paraspinous muscles show symmetrical on inspection, on palpation shows some moderate tenderness diffusely throughout the upper, middle and lower distribution of the paraspinous muscles, but without specific trigger points, without radiation of pain. The patient has good rotational motion of the lumbar spine, both laterally as well as extension and flexion without significant difficulty. EXTREMITIES: Lower extremities show deep tendon reflexes 2+ in the patellar and tendo calcaneus tendons. Motor exam is 4 on a scale of 5 with right dorsiflexion, extension, quadriceps and hamstring flexion and 5/5 on the left. Peripheral pulses are 1+ posterior tibial. No peripheral edema is noted bilaterally. Lower extremities are warm and dry. SKIN: Shows warm and dry, good turgor. No edema. No sores, rashes or bruising throughout. Procedure: Procedure: Options discussed with the patient. Patient's old chart was reviewed as her current medication regimen updated current review of systems updated today as well. We will reorder physical therapy for cervical traction cervical myofascial release massage techniques and ultrasound as well. Also will add Flexeril patient was given instructions well side effects aware with the medication for the spasticity and increased muscular pain. Patient return to clinic once therapy is started. Medication Injected: Med Injected: None Condition at Discharge: Condition at Discharge: Condition at discharge is stable. GISELLE ALATORRE MD November 02, 2020 11:13
== END | disposition home or self-care (01) ==
LOC: PNCL 10:11
PROVIDERS: ATTEND Anesthesiology
DX: M51.16 Intervertebral disc disorders with radiculopathy, lumbar region (principal); M79.18 Myalgia, other site; M54.2 Cervicalgia; Z87.891 Personal history of nicotine dependence; Z79.899 Other long term (current) drug therapy; Z88.1 Allergy status to other antibiotic agents
CPT/HCPCS: 99212; G0463

== ENCOUNTER 2020-11-29 15:39 | Emergency (ER) | payer MEDICAID ==
[~2020-11-29] VITALS: Ht 160 cm; Wt 86.0 kg
[2020-11-29 16:00] VITALS: BP 202/164
== END 2020-11-29 16:35 | disposition left against medical advice (07) ==
LOC: ER 15:39
DX: M79.601 Pain in right arm (principal); Z53.21 Procedure and treatment not carried out due to patient leaving prior to being seen by health care provider